=== PATIENT | female | born 2000 | race African-American/Black ===

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

== ENCOUNTER 2018-01-29 12:03 | Emergency (ER) | payer SELFPAY ==
[2018-01-29] MEDS ORDERED: Acetaminophen 325 MG TAB ONE (13:32)
[2018-01-29 14:12] LABS: Pregnancy Test - Urine (BHCG) Negative (Negative); Pregu Control Background? CLEAR/WHITE (CLR/WHITE); Pregu Control Bar Appear? YES (CONTROL BAR)
[2018-01-29] MEDS ORDERED: Dexamethasone 10 MG/ML VIAL ONE (14:16)
[2018-01-29] MEDS ORDERED: Ondansetron ODT 4 MG TAB ONE (14:23)
== END 2018-01-29 14:28 | disposition home or self-care (01) ==
LOC: ERS 12:03
DX: J02.9 Acute pharyngitis, unspecified (principal)
CPT/HCPCS: 81025; 87070; 87077; 87081; 87186; 87430; 99283; J1100; Q0162

== ENCOUNTER 2018-04-14 06:46 | Emergency (ER) | payer SELFPAY ==
[2018-04-14] MEDS ORDERED: Ketorolac Tromethamine 30 MG/ML VIAL ONE (09:17)
== END 2018-04-14 09:46 | disposition home or self-care (01) ==
LOC: ERS 06:46
DX: N76.2 Acute vulvitis (principal); L73.8 Other specified follicular disorders
CPT/HCPCS: 96372; J1885

== ENCOUNTER 2018-05-12 10:42 | Emergency (ER) | payer SELFPAY ==
[2018-05-12 11:58] LABS: #Basophils 0.1 thou/uL (0.0-0.2); #Eosinphils 0.1 thou/uL (0.0-0.7); #Lymphocytes 1.8 thou/uL (1.20-3.40); #Monocytes 0.6 thou/uL (0.11-0.59); #Neutrophils 6.3 thou/uL (1.40-6.50); %Basophils 1.1 % (0.0-1.0); %Eosinophils 0.6 % (0.0-10.0); %Monocytes 7.1 % (0.0-4.0); %Neutrophils 71.2 % (31.0-61.0); Mean Corpuscular HGB CONC 32.3 g/dL (32.0-36.0); Mean Corpuscular Hemoglobin 27.2 pg (25.0-35.0); Mean Corpuscular Volume 84.3 fL (78.0-98.0); Mean Platelet Volume 8.4 fL (7.4-10.4); Platelet Count 254 thou/uL (130-400); RBC Distribution Width 13.5 % (11.5-14.5); Red Blood Cell (RBC) Count 4.43 mill/uL (4.00-5.20); White Blood Cell (WBC) Count 8.9 thou/uL (4.8-10.8)
[2018-05-12 12:25] LABS: ALT (SGPT) 9 U/L (8-55); AST (SGOT) 15 U/L (5-30); Albumin 4.2 g/dL (3.5-5.0); Alkaline Phosphatase 47 U/L (40-150); Anion Gap 11 mmol/L (10-20); BUN (Urea Nitrogen) 8 mg/dL (8.4-21.0); Bilirubin, Total 0.3 mg/dL (0.2-1.2); Calc. Creatinine Clearance 0 mL/min (70-130); Calcium 9.6 mg/dL (7.8-10.44); Carbon Dioxide 24 mmol/L (22-29); Chloride 103 mmol/L (98-107); Estimated GFR-MDRD Greater than 90; Globulin 3.6 g/dL (2.4-3.5); Glucose 95 mg/dL (70-105); Lipase 13 U/L (8-78); Potassium 4.1 mmol/L (3.5-5.1); Protein, Total 7.8 g/dL (6.0-8.3); Sodium 134 mmol/L (136-145)
[2018-05-12 12:59] LABS: Bilirubin Negative (Negative); Blood, Urine Negative (Negative); Clarity CLEAR (Clear); Glucose, Urine (Dipstick) Negative (Negative); Leukocyte Small (Negative); Nitrite Negative (Negative); Protein, Urine (Dipstick) Negative (Neg-Trace); Specific Gravity, Urine 1.023 (1.002-1.036)
[2018-05-12 13:01] LABS: Bacteria/HPF Rare-Few HPF (None Seen); Hyaline Casts/LPF 0-3 HYALINE CAST LPF (0-3 Hyaline); Pathc Cast-AUWi Flag 0.14 (0-2.49); RBC/HPF 0-3 HPF (0-3)
[2018-05-12 13:33] LABS: Pregnancy Test - Urine (BHCG) POSITIVE (Negative); Pregu Control Background? CLEAR/WHITE (CLR/WHITE); Pregu Control Bar Appear? YES (CONTROL BAR); Specific Gravity 1.023 (1.002-1.036)
== END 2018-05-12 14:18 | disposition home or self-care (01) ==
LOC: ERS 10:42
DX: Z33.1 Pregnant state, incidental (principal); R11.2 Nausea with vomiting, unspecified; R10.30 Lower abdominal pain, unspecified
CPT/HCPCS: 36415; 80053; 81003; 81015; 81025; 83690; 85025; 99284

== ENCOUNTER 2018-05-25 10:08 | Emergency (ER) | payer SELFPAY ==
[2018-05-25 10:41] LABS: Bilirubin Negative (Negative); Blood, Urine Negative (Negative); Clarity CLOUDY (Clear); Glucose, Urine (Dipstick) Negative (Negative); Leukocyte Moderate (Negative); Nitrite Negative (Negative); Protein, Urine (Dipstick) 30 mg/dL (Neg-Trace); pH, Urine 6.5 (5.0-9.0)
[2018-05-25 10:44] LABS: Bacteria/HPF 1+ HPF (None Seen); Pathc Cast-AUWi Flag 4.79 (0-2.49); RBC/HPF 0-3 HPF (0-3)
[2018-05-25 10:45] LABS: Hyaline Casts/LPF 0-3 HYALINE CAST LPF (0-3 Hyaline); Manual Microscopic Reviewed? No Path Casts Seen
[2018-05-25 10:51] LABS: #Basophils 0.1 thou/uL (0.0-0.2); #Eosinphils 0.1 thou/uL (0.0-0.7); #Lymphocytes 2.2 thou/uL (1.20-3.40); #Monocytes 0.8 thou/uL (0.11-0.59); #Neutrophils 7.5 thou/uL (1.40-6.50); %Basophils 1.2 % (0.0-1.0); %Eosinophils 0.6 % (0.0-10.0); %Lymphocytes 20.2 % (28.0-48.0); %Monocytes 7.7 % (0.0-4.0); %Neutrophils 70.2 % (31.0-61.0); Hemoglobin 12.8 g/dL (12.0-16.0); Mean Corpuscular HGB CONC 31.9 g/dL (32.0-36.0); Mean Corpuscular Hemoglobin 26.8 pg (25.0-35.0); Mean Corpuscular Volume 84.1 fL (78.0-98.0); Mean Platelet Volume 8.9 fL (7.4-10.4); Platelet Count 270 thou/uL (130-400); RBC Distribution Width 13.2 % (11.5-14.5); Red Blood Cell (RBC) Count 4.79 mill/uL (4.00-5.20); White Blood Cell (WBC) Count 10.7 thou/uL (4.8-10.8)
[2018-05-25 11:13] LABS: ALT (SGPT) 31 U/L (8-55); AST (SGOT) 29 U/L (5-30); Albumin 4.2 g/dL (3.5-5.0); Alkaline Phosphatase 48 U/L (40-150); Anion Gap 11 mmol/L (10-20); BUN (Urea Nitrogen) 9 mg/dL (8.4-21.0); Bilirubin, Total 0.3 mg/dL (0.2-1.2); Calc. Creatinine Clearance 0 mL/min (70-130); Calcium 9.6 mg/dL (7.8-10.44); Carbon Dioxide 22 mmol/L (22-29); Chloride 103 mmol/L (98-107); Estimated GFR-MDRD Greater than 90; Globulin 3.7 g/dL (2.4-3.5); Glucose 89 mg/dL (70-105); Lipase 15 U/L (8-78); Potassium 3.7 mmol/L (3.5-5.1); Protein, Total 7.9 g/dL (6.0-8.3); Sodium 132 mmol/L (136-145)
--- NOTE | 2018-05-25 12:07 | ULT ---
ULTRASOUND PELVIC WITH DOPPLER: Date: 05/25/18 HISTORY: Evaluate for an ectopic . Abdominal pain. Pelvic pain. COMPARISON: None. FINDINGS: There is a single, viable intrauterine . A pole, yolk sac, and gestational sac are see n. The heart rate is documented at 180 beats/minute. There is a small anterior body fibroid. Adequate vascular flow to both ovaries. Right ovary measures 2.7 x 1.8 x 1.3 cm. Left ovary measure 2.3 x 1.2 x 1.9 cm. No subchorionic hemorrhage. The average ultrasound age is 9 weeks/2 days. Estimated date of delivery is 12/26/18. IMPRESSION: Single, viable intrauterine , with average ultrasound age of 9 weeks and 2 days. Estimated d ate of delivery is 12/26/18. POS: [facility]
== END 2018-05-25 12:30 | disposition home or self-care (01) ==
LOC: ERS 10:08
DX: N39.0 Urinary tract infection, site not specified (principal)
CPT/HCPCS: 76856; 80053; 81003; 81015; 83690; 84702; 85025; 87086; 87480; 87510; 87660; 93976

== ENCOUNTER 2018-06-20 14:18 | Emergency (ER) | payer SELFPAY ==
[2018-06-20 15:01] LABS: #Basophils 0.1 thou/uL (0.0-0.2); #Lymphocytes 2.2 thou/uL (1.20-3.40); #Monocytes 0.7 thou/uL (0.11-0.59); #Neutrophils 7.8 thou/uL (1.40-6.50); %Basophils 0.7 % (0.0-1.0); %Eosinophils 0.4 % (0.0-10.0); %Lymphocytes 20.1 % (28.0-48.0); %Monocytes 6.5 % (0.0-4.0); %Neutrophils 72.4 % (31.0-61.0); Hemoglobin 13.3 g/dL (12.0-16.0); Mean Corpuscular HGB CONC 33.3 g/dL (32.0-36.0); Mean Corpuscular Hemoglobin 27.3 pg (25.0-35.0); Mean Platelet Volume 8.8 fL (7.4-10.4); Platelet Count 253 thou/uL (130-400); RBC Distribution Width 13.5 % (11.5-14.5); Red Blood Cell (RBC) Count 4.86 mill/uL (4.00-5.20); White Blood Cell (WBC) Count 10.7 thou/uL (4.8-10.8)
[2018-06-20 15:30] LABS: ALT (SGPT) 13 U/L (8-55); AST (SGOT) 18 U/L (5-30); Albumin 4.3 g/dL (3.5-5.0); Alkaline Phosphatase 47 U/L (40-150); Anion Gap 16 mmol/L (10-20); BUN (Urea Nitrogen) 10 mg/dL (8.4-21.0); Bilirubin, Total 0.4 mg/dL (0.2-1.2); Calc. Creatinine Clearance 0 mL/min (70-130); Calcium 9.9 mg/dL (7.8-10.44); Carbon Dioxide 17 mmol/L (22-29); Chloride 105 mmol/L (98-107); Estimated GFR-MDRD Greater than 90; Glucose 82 mg/dL (70-105); Lipase 14 U/L (8-78); Magnesium 1.9 mg/dL (1.7-2.2); Potassium 3.7 mmol/L (3.5-5.1); Protein, Total 8.3 g/dL (6.0-8.3); Sodium 134 mmol/L (136-145)
[2018-06-20 16:12] LABS: Bilirubin Small (Negative); Blood, Urine Negative (Negative); Clarity TURBID (Clear); Glucose, Urine (Dipstick) Negative (Negative); Leukocyte Large (Negative); Nitrite Negative (Negative); Protein, Urine (Dipstick) 30 mg/dL (Neg-Trace); Specific Gravity, Urine 1.032 (1.002-1.036)
[2018-06-20 16:13] LABS: Pregnancy Test - Urine (BHCG) POSITIVE (Negative); Pregu Control Background? CLEAR/WHITE (CLR/WHITE); Pregu Control Bar Appear? YES (CONTROL BAR); Specific Gravity 1.032 (1.002-1.036)
[2018-06-20] MEDS ORDERED: Mag-Al 1200 mg/1200 mg/30 ML UDCUP ONE (16:14)
[2018-06-20] MEDS ORDERED: Lidocaine Viscous Sol 2% 15 ml UD Cup ONE (16:14)
[2018-06-20 16:15] LABS: Bacteria/HPF 2+ HPF (None Seen); Squamous Epithelial 21-50 HPF (0-3)
[2018-06-20 16:16] LABS: Pathc Cast-AUWi Flag 4.36 (0-2.49)
[2018-06-20 16:23] LABS: Hyaline Casts/LPF 0-3 HYALINE CAST LPF (0-3 Hyaline); Other Casts/LPF None Seen LPF (0-3 Hyaline); RBC/HPF 0-3 HPF (0-3)
[2018-06-20] MEDS ORDERED: Ondansetron PF 4 MG/2 ML Vial ONE ×2 (16:26→16:27)
[2018-06-20] MEDS ORDERED: cefTRIAXone\\ROCEPHIN 1 GM VIAL ONE (16:57)
== END 2018-06-20 17:40 | disposition home or self-care (01) ==
LOC: ERS 14:18
DX: O21.9 Vomiting of pregnancy, unspecified (principal); O23.42 Unspecified infection of urinary tract in pregnancy, second trimester; F41.9 Anxiety disorder, unspecified; F32.9 Major depressive disorder, single episode, unspecified; Z3A.14 14 weeks gestation of pregnancy
CPT/HCPCS: 36415; 80053; 81003; 81015; 81025; 83690; 83735; 85025; 87086; 96361; 96365; 96375; J0696; J2405

== ENCOUNTER 2018-07-10 11:18 | Emergency (ER) | payer MEDICAID, SELFPAY ==
[2018-07-10] MEDS ORDERED: diphenhydrAMINE 50 MG/ML VIAL ONE (11:52)
[2018-07-10] MEDS ORDERED: Metoclopramide HCl 10 MG/2 ML VIAL ONE (11:52)
== END 2018-07-10 13:08 | disposition home or self-care (01) ==
LOC: ERS 11:18
DX: J02.9 Acute pharyngitis, unspecified (principal); R11.2 Nausea with vomiting, unspecified; F32.9 Major depressive disorder, single episode, unspecified; F41.9 Anxiety disorder, unspecified
CPT/HCPCS: 87081; 87430; 96365; 96375; J1200; J2765

== ENCOUNTER 2018-08-10 10:48 | Emergency (ER) | payer MEDICAID, OTHER ==
[2018-08-10] MEDS ORDERED: Bupivacaine 0.5% 10 ML VIAL ONE (12:12)
== END 2018-08-10 13:00 | disposition home or self-care (01) ==
LOC: ERS 10:48
DX: O99.711 Diseases of the skin and subcutaneous tissue complicating pregnancy, first trimester (principal); L02.214 Cutaneous abscess of groin; O99.341 Other mental disorders complicating pregnancy, first trimester; F41.9 Anxiety disorder, unspecified; F32.9 Major depressive disorder, single episode, unspecified; Z3A.00 Weeks of gestation of pregnancy not specified
CPT/HCPCS: 10060; J3490

== ENCOUNTER 2018-08-30 19:06 | Day surgery (SDC) | payer OTHER ==
[2018-08-30 19:55] VITALS: BMI 25.7
[2018-08-30] MEDS ORDERED: Morphine 10 MG/ML VIAL IM SCH (20:45)
--- NOTE | 2018-08-30 20:52 | PRG ---
DATE OF SERVICE: 08/30/2018 PRIMARY ADVERTISING INTERN: Dr. Bae. CHIEF COMPLAINT: Sharp abdominal pains. HISTORY OF PRESENT ILLNESS: The patient is a 17-year-old G1, P0 with an intrauterine at 23 weeks and 2 days, who is presenting with a several day history of sharp lower abdominal pains. She feels worse with standing, walking, and getting out of bed. 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 The patient reports loose stools at night for the last few weeks. Denies diarrhea. Denies constipation. Denies fever, headache, chest pain, shortness of breath, nausea, vomiting, hip problems, knee problems, muscle weakness, rash, vaginal bleeding or leakage of fluid or urinary urgency or frequency. PAST MEDICAL HISTORY: Negative. PAST SURGICAL HISTORY: She has had tonsillectomy. SOCIAL HISTORY: Denies drug, alcohol, or tobacco use. ALLERGIES: NO KNOWN DRUG ALLERGIES. MEDICATION: vitamins. OB LABS: Unavailable. REVIEW OF SYSTEMS: Per HPI. PHYSICAL EXAMINATION: VITAL SIGNS: Blood pressure 110/60, heart rate of 93, respiratory rate of 20, and temperature 98.4. GENERAL: She appears to be in no acute distress. She is alert, oriented, cooperative, and pleasant to interact with. HEAD: Normocephalic and atraumatic. LUNGS: Clear to auscultation bilaterally. HEART: Regular rate and rhythm. ABDOMEN: Soft. She does have tenderness with deviation of the uterus to the left and right, primarily on the left-hand side, lower abdomen, and inguinal region. EXTREMITIES: Nontender and nonedematous. : Has been deferred. She has no CVA tenderness. No paravertebral tenderness. No vertebral tenderness. She does have some SI joint tenderness primarily on the left. heart tracing shows a baseline in the 150s with moderate long-term variability and appropriate for a 23-week gestation. ASSESSMENT AND PLAN: The patient is a 17-year-old with musculoskeletal pain of . She has been given reassurance, there is no evidence of labor. The patient has been counseled to take 2 Tylenol 3 times a day for the next few days and will be going home with 6 mg of morphine IM to help acutely. The patient has an appointment with Dr. Bae in a couple of weeks. We have encouraged that she make an appointment for sooner if she is having trouble managing her pain at home with Tylenol. Fetus is reassuring for gestational age. The patient is being discharged home. Job ID: [id number]
== END 2018-08-30 20:50 | disposition home or self-care (01) ==
LOC: L&D/OP 19:06
PROVIDERS: ATTEND Obstetrics & Gynecology
DX: O26.892 Other specified pregnancy related conditions, second trimester (principal); R10.30 Lower abdominal pain, unspecified; Z79.899 Other long term (current) drug therapy; Z3A.23 23 weeks gestation of pregnancy
CPT/HCPCS: 96372; 99282; J2270

== ENCOUNTER 2018-09-01 01:21 | Day surgery (SDC) | payer OTHER ==
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
--- NOTE | 2018-09-01 02:04 | PDOC.EVN ---
Event Note - Event Note Event Note: I have interviewed the patient myself, with Rowan in the room (RN). I asked the partner to step out for the interview. Patient denies abuse or drug use. I asked if the partner does any illicit substances as his eyes were glassy...she said no. She was aked about abuse and she denied. She feels safe at home. We will watch overnight. I discussed RH check with her.
[2018-09-01 02:21] VITALS: BP 112/58; TEMP 98.2; BMI 25.7
--- NOTE | 2018-09-01 05:50 | PDOC.EVN ---
Event Note - Event Note Event Note: Doing well Stable for [facility] RH pos
== END 2018-09-01 06:12 | disposition home health service (06) ==
LOC: L&D/OP 01:21
PROVIDERS: ATTEND Obstetrics & Gynecology
DX: O99.89 Other specified diseases and conditions complicating pregnancy, childbirth and the puerperium (principal); R42 Dizziness and giddiness; Z3A.23 23 weeks gestation of pregnancy; W19.XXXA Unspecified fall, initial encounter
CPT/HCPCS: 36415; 86900; 86901; 99283

== ENCOUNTER 2018-09-07 01:16 | Emergency (ER) | payer OTHER ==
[2018-09-07 01:38] LABS: Bilirubin Negative (Negative); Blood, Urine Negative (Negative); Glucose, Urine (Dipstick) Negative (Negative); Leukocyte Small (Negative); Nitrite Negative (Negative); Protein, Urine (Dipstick) Negative (Neg-Trace); Specific Gravity, Urine 1.025 (1.005-1.030); Urobilinogen 0.2 mg/dL (0.2-1.0); pH, Urine 7.5 (5.0-9.0)
[2018-09-07 01:39] LABS: Squamous Epithelial 21-50 HPF (0-3)
[2018-09-07 01:40] LABS: Clarity Cloudy (Clear); Pathc Cast-AUWi Flag 68.76 (0-2.49); Yeast-AUWi Flag 2206.8 (0-25.0)
[2018-09-07 01:50] LABS: Bacteria/HPF Rare-Few HPF (None Seen); Hyaline Casts/LPF NONE SEEN LPF (0-3 Hyaline); RBC/HPF 0-3 HPF (0-3); Renal Epithelial None Seen HPF (0-3); Transitional Epithelial NONE SEEN HPF (0-3); Yeast-All Forms None Seen HPF (None Seen)
[2018-09-07 01:51] LABS: Crystals/HPF 1+ AMORPH PHOS HPF (Negative); Manual Microscopic Reviewed? No Path Casts Seen
[2018-09-07 22:48] LABS: Chlamydia by PCR Not Detected (NotDetected); GC by PCR Not Detected (NotDetected)
== END 2018-09-07 02:11 | disposition home or self-care (01) ==
LOC: ERS 01:16
DX: B37.3 Candidiasis of vulva and vagina (principal); N39.0 Urinary tract infection, site not specified
CPT/HCPCS: 81003; 81015; 87480; 87491; 87510; 87591; 87660; 99283

== ENCOUNTER 2018-12-15 23:22 | Day surgery (SDC) | payer OTHER ==
[2018-12-15 23:53] VITALS: BP 118/64; TEMP 98.7; BMI 29.7
--- NOTE | 2018-12-16 00:26 | PDOC.LDHP ---
Labor and Delivery H&P Allergies/Adverse Reactions: Allergies Allergy/AdvReac Type Severity Reaction Status Date / Time No Known Allergies Allergy Verified 12/15/18 23:47 - Plan -: PCP: Catalino HPI: This is a 18 yo at 38.5 wks by LMP/1TUS presenting for nausea which has been going on for 5-6 days. She states she feels like she needs to vomit but cannot vomit. She has been taking Zofran from Dr. Manuel office but this has not been helping. She has been tolerating PO intake, tonight for supper she ate BBQ wings, Vincentian fries, and macaroni and cheese from [employer] and more. States she is a poor water drinker. She denies fevers, chills, or sweats. She denies burning or blood with urination. She was treated for yeast infection 2 weeks ago and states she has not had vaginal burning/itching since that time. Patient states she has lower abdominal pain on both sides described as sharp which is worse with movement and resolves at rest. Pain is 0/10 at this moment but comes on occasionally and lasts for a few minutes. She has not tried anytying at home to help with this pain. Thinks she gets 1-2 contractions per day. She affirms movement, denies ROM, denies bleeding/discharge. Denies FARRIS, visual changes, SOB, or swelling. History: OB hx: G1 PMH: neg PSH: neg Meds: PNV Soc Hx: denies smoking, alcohol, drugs Fam Hx: denies downs, congenital defects Blood type: A+ Abs screen neg Hep b neg RPR/HIV neg Rubella immune PAP NILM GC/CT neg GBS: neg REVIEW OF SYSTEMS: Gen: no fever, chills, or sweats Neuro: no numbness/tingling, no weakness, denies headache Eyes: no visual changes ENT: no hearing changes, no sore throat, no runny nose Resp: no cough, no SOB, no wheeze Card: denies chest pain, no palpitations GI: see hpi : no dysuria, no hematuria MSK: no myalgias, no joint pain/stiffness Heme: no easy bruising/bleeding Skin: no rash, no erythema PHYSICAL EXAMINATION: General: NAD, alert and oriented x3 HEENT: PERRLA, EOMI, normal sclera, oropharynx without erythema or exudate Neck: Supple. Full ROM. Heart/Cardiovascular System: RRR, Cap refill < 3 seconds, no rub, no murmur Lungs/Respiratory System: clear to auscultation bilaterally. No increased work of breathing. Room air. Abdomen/Gastro-Intestinal System: no abdominal tenderness, normal bowel sounds, Gravid Extremities: Warm extremities. No cyanosis or edema. Neuro: No gross deficits appreciated. CN 2-12 grossly intact Psychiatry: Awake, Alert and cooperative with exam Skin: No lesions, rashes, or ulcers Musculoskeletal: Full ROM A/P: This is a 18 yo at 38.5 wks by LMP/1TUS presenting for nausea # Round ligament pain - Tylenol, rest, reassurance - Follow up in clinic this week # Indigestion - Tolerating PO liquids and solids, drank 2 cups of water while in triage Discussed labor precautions at length, f/u with Catalino this week in clinic Addendum - Attending - Attending Attestation Date/Time: 12/18/18 0623 I personally evaluated the patient and discussed the management with Dr. Hansen I agree with the History, Examination, Assessment and Plan documented above with any addition or exceptions noted below. Vital signs and fht also reviewed by myself. 112/66 84 R18 98.7. FHT baseline 130s with mod ltv , +accels, no decels. [place] with frequent irregular ctx. Pt in latent labor. dicharged home with precautions
[2018-12-16] MEDS ORDERED: Acetaminophen 325 MG TAB PO SCH (00:30)
== END 2018-12-16 01:30 | disposition home or self-care (01) ==
LOC: L&D/OP 23:22
PROVIDERS: ATTEND Obstetrics & Gynecology
DX: O99.613 Diseases of the digestive system complicating pregnancy, third trimester (principal); K30 Functional dyspepsia; O99.89 Other specified diseases and conditions complicating pregnancy, childbirth and the puerperium; R10.2 Pelvic and perineal pain; R11.0 Nausea; Z3A.38 38 weeks gestation of pregnancy
CPT/HCPCS: 99283

== ENCOUNTER 2018-12-22 23:58 | Emergency (ER) | payer OTHER | END 2018-12-23 01:15 | disposition home or self-care (01) | LOC: ERS 23:58 | DX: O9A.213 Injury, poisoning and certain other consequences of external causes complicating pregnancy, third trimester (principal); S80.862A Insect bite (nonvenomous), left lower leg, initial encounter; S80.861A Insect bite (nonvenomous), right lower leg, initial encounter; W57.XXXA Bitten or stung by nonvenomous insect and other nonvenomous arthropods, initial encounter | CPT/HCPCS: 99281 ==

== ENCOUNTER 2018-12-25 00:57 | Day surgery (SDC) | payer OTHER ==
[2018-12-25 01:40] VITALS: BMI 28.8
--- NOTE | 2018-12-25 02:30 | PDOC.LDHP ---
Labor and Delivery H&P HPI: Patient of Dr Bae CC: CTX HPI: 18 yo G1 at 40 weeks 0 days with irregular CTX. No VB, no LOF, good FM. No FARRIS, no LOC, no other issues. Review of systems: Complete ROS performed and as per HPI Current gestational age (weeks): 40 Dating criteria: last menstrual period Grav: 1 Para: 0 Current complications: none Abnormal US findings: No Current medications: pre-marcus vitamins Previous surgical history: other (T&A) Allergies/Adverse Reactions: Allergies Allergy/AdvReac Type Severity Reaction Status Date / Time No Known Allergies Allergy Verified 12/25/18 01:41 - Physical Exam Vital signs reviewed and normal: yes (126/80) General: NAD Heart: RRR Lungs: CTAB Abdomen: gravid Extremeties: no edema FHT: category 1 [place] contractions every: every 2-4 - Vaginal Exam cm dilated: 1 Effacement: 50% Station: -1 - Assessment Latent labor at full term - Plan Plan: observation in L&D (Obs for 2 hours)
--- NOTE | 2018-12-25 04:36 | PDOC.EVN ---
Event Note - Event Note Event Note: Follow up: I have reassessed the patient at bedside. BPs are normal. She is having some persistent CTX but stil irregular. No LOF, no VB. CX is still 1cm as before. NST is reactive, no decels She has an appoitment for induction of labor this coming Tuesday if no spont delivery. OK for discharge and return to L&D if sxs persists or labor progresses. Information provided to the patient and family.
== END 2018-12-25 04:38 | disposition home or self-care (01) ==
LOC: L&D/OP 00:57
PROVIDERS: ATTEND Obstetrics & Gynecology
DX: O47.1 False labor at or after 37 completed weeks of gestation (principal); Z3A.40 40 weeks gestation of pregnancy; Z79.899 Other long term (current) drug therapy
CPT/HCPCS: 99282

== ENCOUNTER 2018-12-25 16:51 | Inpatient (IN) | payer OTHER ==
[2018-12-25 17:38] VITALS: BMI 28.8
[2018-12-25] MEDS ORDERED: Butorphanol Tartrate 1 MG/ML VIAL SLOW IVP PRN (17:46)
[2018-12-25] MEDS ORDERED: Lactated Ringer's 1,000 ML IV SCH (17:46)
[2018-12-25] MEDS ORDERED: Ondansetron PF 4 MG/2 ML Vial IVP PRN ×2 (17:46→19:11)
[2018-12-25] MEDS ORDERED: HYDROcodone/Acetaminophen 5/325 mg Tablet PO PRN ×2 (17:46)
[2018-12-25] MEDS ORDERED: NS / Oxytocin 40 units/1000ml 1,000 ML IV PRN (17:46)
[2018-12-25] MEDS ORDERED: NS w/ Oxytocin 10 units 500 ML IV SCH (17:46)
[2018-12-25] MEDS ORDERED: Lidocaine 1% (PF) 30 ML VIAL SC PRN (17:46)
[2018-12-25] MEDS ORDERED: Promethazine HCl 25 MG/ML VIAL IM PRN ×2 (17:46→19:11)
[2018-12-25] MEDS ORDERED: Ibuprofen 800 MG TAB PO PRN (17:46)
[2018-12-25] MEDS ORDERED: Fentanyl 4 mcg/Bup 0.1% Cadd 100 ML ONE (17:54)
[2018-12-25 18:13] LABS: Hemoglobin 12.6 g/dL (12.0-16.0); Mean Corpuscular HGB CONC 33.2 g/dL (32.0-36.0); Mean Corpuscular Hemoglobin 29.2 pg (25.0-35.0); Mean Corpuscular Volume 88.1 fL (78.0-98.0); Mean Platelet Volume 9.6 fL (7.4-10.4); Platelet Count 194 thou/uL (130-400); RBC Distribution Width 13.4 % (11.5-14.5); Red Blood Cell (RBC) Count 4.31 mill/uL (4.00-5.20); White Blood Cell (WBC) Count 24.7 thou/uL (4.8-10.8)
[2018-12-25] MEDS ORDERED: diphenhydrAMINE 50 MG/ML VIAL ONE (18:25)
[2018-12-25 18:48] LABS: HBSAg Index 0.32 S/CO (0-0.99); Hep B Surf Ag Non-Reactive S/CO (NonReactive)
[2018-12-25 18:49] LABS: Syphilis Antibody Nonreactive (Nonreactive); Syphilis Antibody Index 0.06 S/CO (<1.00 Non-Reactive)
[2018-12-25] MEDS: Lactated Ringer's 1,000 ML IV SCH ×2 (18:54→23:21)
[2018-12-25] MEDS ORDERED: Acetaminophen 325 MG TAB PO PRN (19:11)
[2018-12-25] MEDS ORDERED: ePHEDrine/0.9% NaCl/PF SYRINGE 50 mg/10 ml SLOW IVP PRN (19:11)
[2018-12-25] MEDS ORDERED: Lactated Ringer's 500 ML IV PRN (19:11)
[2018-12-25] MEDS ORDERED: diphenhydrAMINE 50 MG/ML VIAL IVP PRN (19:11)
[2018-12-25] MEDS ORDERED: Naloxone HCl 0.4 mg/ml Vial IVP PRN ×2 (19:11)
[2018-12-25] MEDS ORDERED: Fentanyl 4 mcg/Bupivacaine 0.1% Cassette 100 ML EPIDURAL SCH (19:15)
[2018-12-25] MEDS ORDERED: Communication Order-Pharmacy FS SCH (19:15)
[2018-12-26] MEDS ORDERED: Fentanyl 4 mcg/Bup 0.1% Cadd 100 ML ONE (01:59)
--- NOTE | 2018-12-26 04:00 | PDOC.OPDEL ---
OB Operative/Delivery Note Delivery Dr/Surgeon: Kev for [facility] Pre-Delivery Diagnosis: active labor Procedure/Post Delivery Dx: spontaneous vaginal delivery Weeks gestation: 40 Anesthesia: epidural - Findings A Sex: male Weight: 0 oz - 1 min: 8 - 5 min: 9 - Additional Findings/Plan Placenta delivered: spontaneous Repaired Obstetrical Laceration: left labial (2 deg repair with 2/0 chromic, jasso in situ) Estimated blood loss: 582 Compilations/Other Findings: controlled without complication. routine repair. will leave jasso in for 14 hr due to proximity to urethra meatus Post delivery plan: routine recovery
[2018-12-26] MEDS ORDERED: Promethazine HCl 25 MG/ML VIAL IM PRN (05:14)
[2018-12-26] MEDS ORDERED: Ondansetron PF 4 MG/2 ML Vial IVP PRN (05:14)
[2018-12-26] MEDS ORDERED: Milk Of Magnesia 30 ML UDCUP PO PRN (05:14)
[2018-12-26] MEDS ORDERED: diphenhydrAMINE 25 MG CAP PO PRN (05:14)
[2018-12-26] MEDS ORDERED: Zolpidem Tartrate 5 MG TAB PO PRN (05:14)
[2018-12-26] MEDS ORDERED: Lanolin Ointment 7 GM TUBE TOP PRN (05:14)
[2018-12-26] MEDS ORDERED: Benzocaine-Menthol 82.5 ML CAN TOP PRN (05:14)
[2018-12-26] MEDS ORDERED: Preparation H Ointment 28 GM TUBE PR PRN (05:14)
[2018-12-26] MEDS ORDERED: NS / Oxytocin 40 units/1000ml 1,000 ML IV SCH (05:14)
[2018-12-26] MEDS ORDERED: HYDROcodone/Acetaminophen 5/325 mg Tablet PO PRN (05:14)
[2018-12-26] MEDS ORDERED: Bisacodyl 10 MG SUPP PR PRN (05:14)
[2018-12-26] MEDS: Ibuprofen 800 MG TAB PO SCH ×3 (06:24→22:19)
[2018-12-26] MEDS ORDERED: Adacel (T-DAP) 0.5 ML SYRINGE IM ONE (09:00)
[2018-12-26] MEDS: Ferrous Sulfate 325 MG TAB PO SCH ×2 (09:53→16:49)
[2018-12-26] MEDS: Prenatal Vitamin 1 TAB PO SCH (09:54)
[2018-12-26] MEDS: Docusate Calcium (SURFAK) 240 MG CAP PO SCH ×2 (09:54→22:19)
[2018-12-26] MEDS ORDERED: Sodium Chloride 0.9% 15 ML NEB ONE (18:00)
[2018-12-26] MEDS: HYDROcodone/Acetaminophen 5/325 mg Tablet PO PRN (18:40)
--- NOTE | 2018-12-27 00:08 | PDOC.PP ---
Post Progress Note Post Day #: PPD#1 Subjective: Resting no c/o. Ramirez was removed at 6pm, has voided x 1. PO intake tolerated: yes Flatus: yes Ambulation: yes Vital Signs (12 hours) Temp Pulse Resp BP Pulse Ox 12/26/18 19:45 98.2 F 84 18 118/69 99 12/26/18 17:21 98.8 F 90 20 113/56 L 12/26/18 12:21 98.6 F 92 20 92/51 L Weight Weight 78.471 kg - Physical Examination General: NAD Respiratory: non-labored breathing Neurological: no gross focal deficits Psychiatric: normal affect Result Diagrams: 12/25/18 18:01 Additional Labs: Post Labs Blood Type A POSITIVE 12/25/18 18:01 Hep Bs Antigen Non-Reactive S/CO (NonReactive) 12/25/18 18:01 - Assessment/Plan Doing well. Routine PP care. Anticipate DC 12/28/18.
[2018-12-27] MEDS: Ibuprofen 800 MG TAB PO SCH ×2 (05:33→14:30)
[2018-12-27] MEDS: HYDROcodone/Acetaminophen 5/325 mg Tablet PO PRN ×2 (06:39→15:05)
[2018-12-27 08:07] VITALS: TEMP 98.4
[2018-12-27] MEDS: Docusate Calcium (SURFAK) 240 MG CAP PO SCH (09:11)
[2018-12-27] MEDS: Prenatal Vitamin 1 TAB PO SCH (09:11)
[2018-12-27] MEDS: Ferrous Sulfate 325 MG TAB PO SCH (09:12)
[2018-12-27 11:58] VITALS: BP 114/54
== END 2018-12-27 17:15 | disposition home or self-care (01) | DRG 807 ==
LOC: L&D/OP 16:51 → L&D 17:32 → 3SW 12-26 07:37
PROVIDERS: ADMIT Obstetrics & Gynecology; ATTEND Obstetrics & Gynecology
PROC: 10E0XZZ Delivery of Products of Conception, External Approach (ICD-10-PCS; principal; 2018-12-26)
PROC: 0UQMXZZ Repair Vulva, External Approach (ICD-10-PCS; 2018-12-26)
DX: O48.0 Post-term pregnancy (principal); Z37.0 Single live birth; Z3A.40 40 weeks gestation of pregnancy; O70.0 First degree perineal laceration during delivery
CPT/HCPCS: 36415; 51702; 85027; 86780; 86850; 86900; 86901; 87340; 99285; A4218; J1200; J2405; J2590

== ENCOUNTER 2019-01-05 16:50 | Emergency (ER) | payer OTHER ==
[2019-01-05 17:32] LABS: #Basophils 0.1 thou/uL (0.0-0.2); #Eosinphils 0.1 thou/uL (0.0-0.7); #Lymphocytes 2.3 thou/uL (1.20-3.40); #Monocytes 0.8 thou/uL (0.11-0.59); #Neutrophils 10.1 thou/uL (1.40-6.50); %Basophils 0.4 % (0.0-1.0); %Lymphocytes 17.1 % (28.0-48.0); %Neutrophils 75.5 % (31.0-61.0); Hemoglobin 11.7 g/dL (12.0-16.0); Mean Corpuscular HGB CONC 33.1 g/dL (32.0-36.0); Mean Corpuscular Hemoglobin 29.2 pg (25.0-35.0); Mean Corpuscular Volume 88.3 fL (78.0-98.0); Mean Platelet Volume 8.2 fL (7.4-10.4); Platelet Count 321 thou/uL (130-400); RBC Distribution Width 12.9 % (11.5-14.5); White Blood Cell (WBC) Count 13.4 thou/uL (4.8-10.8)
[2019-01-05 17:57] LABS: ALT (SGPT) 13 U/L (8-55); AST (SGOT) 15 U/L (5-34); Acetaminophen Less than 6.0 mcg/mL (10.0-30.0); Albumin 3.7 g/dL (3.5-5.0); Alcohol Less than 10 mg/dL (Less than 10); Alkaline Phosphatase 179 U/L (40-150); Anion Gap 14 mmol/L (10-20); BUN (Urea Nitrogen) 18 mg/dL (7.0-18.7); Bilirubin, Total 0.2 mg/dL (0.2-1.2); Calc. Creatinine Clearance 0 mL/min (70-130); Calcium 9.2 mg/dL (7.8-10.44); Carbon Dioxide 21 mmol/L (22-29); Chloride 107 mmol/L (98-107); Estimated GFR-MDRD Greater than 90; Globulin 3.3 g/dL (2.4-3.5); Glucose 78 mg/dL (70-105); Potassium 4.4 mmol/L (3.5-5.1); Salicylate Less than 8.0 mg/dL (15.0-30.0); Sodium 138 mmol/L (136-145)
[2019-01-05 18:20] LABS: Amphetamine Not Detected (NotDetected); Barbiturates Screen Not Detected (NotDetected); Benzodiazepine Screen Not Detected (NotDetected); Cocaine Metabolite Screen Not Detected (NotDetected); Medtox Reader # READER 1; Methadone Not Detected (NotDetected); Methamphetamine Not Detected (NotDetected); Opiate Screen Not Detected (NotDetected); Oxycodone Screen Not Detected (NotDetected); Phencyclidine (PCP) Not Detected (NotDetected); THC/Cannabinoid Screen Not Detected (NotDetected); Tricyclic Screen Not Detected (NotDetected)
[2019-01-05 18:21] LABS: Medtox Control Line Valid? VALID (VALID)
[2019-01-05 19:59] LABS: Bilirubin Negative (Negative); Blood, Urine Large (Negative); Clarity CLOUDY (Clear); Glucose, Urine (Dipstick) Negative (Negative); Leukocyte Large (Negative); Nitrite Negative (Negative); Protein, Urine (Dipstick) 30 mg/dL (Neg-Trace); Specific Gravity, Urine 1.026 (1.002-1.036)
[2019-01-05 20:00] LABS: Pregnancy Test - Urine (BHCG) Negative (Negative); Pregu Control Background? CLEAR/WHITE (CLR/WHITE); Pregu Control Bar Appear? YES (CONTROL BAR); Specific Gravity 1.026 (1.002-1.036)
[2019-01-05 20:01] LABS: Pathc Cast-AUWi Flag 2.04 (0-2.49); Squamous Epithelial 0-3 HPF (0-3); Yeast-AUWi Flag 284.1 (0-25.0)
[2019-01-05 20:06] LABS: Bacteria/HPF 1+ HPF (None Seen); Hyaline Casts/LPF NONE SEEN LPF (0-3 Hyaline); Yeast-All Forms None Seen HPF (None Seen)
== END 2019-01-05 23:47 ==
LOC: ERS 16:50
DX: O99.345 Other mental disorders complicating the puerperium (principal); F53.0 Postpartum depression; F41.9 Anxiety disorder, unspecified
CPT/HCPCS: 36415; 80053; 80306; 80307; 81003; 81015; 81025; 84443; 85025; 99285

== ENCOUNTER 2019-03-20 17:54 | Emergency (ER) | payer OTHER, SELFPAY ==
[2019-03-20] MEDS ORDERED: Lidocaine 1% PF 5 ML VIAL ONE (18:44)
[2019-03-20] MEDS ORDERED: Acetaminophen/Codeine 30-300mg Tablet ONE (18:47)
== END 2019-03-20 20:45 | disposition home or self-care (01) ==
LOC: ERS 17:54
DX: L02.415 Cutaneous abscess of right lower limb (principal); F31.9 Bipolar disorder, unspecified; F41.9 Anxiety disorder, unspecified
CPT/HCPCS: 10060; J2001

== ENCOUNTER 2019-08-21 00:59 | Emergency (ER) | payer SELFPAY ==
[2019-08-21] MEDS ORDERED: Ondansetron ODT 8 MG TAB ONE (01:17)
[2019-08-21] MEDS ORDERED: Promethazine HCl 25 MG/ML VIAL ONE (02:09)
== END 2019-08-21 02:30 | disposition home or self-care (01) ==
LOC: ERS 00:59
DX: R11.2 Nausea with vomiting, unspecified (principal); R19.7 Diarrhea, unspecified; F41.9 Anxiety disorder, unspecified; F31.9 Bipolar disorder, unspecified
CPT/HCPCS: 96372; 99284; J2550

== ENCOUNTER 2019-09-24 04:33 | Emergency (ER) | payer SELFPAY ==
[2019-09-24] MEDS ORDERED: Ondansetron ODT 4 MG TAB ONE ×2 (05:50→06:14)
[2019-09-24] MEDS ORDERED: Ondansetron PF 4 MG/2 ML Vial ONE (06:40)
[2019-09-24 07:13] LABS: BHCG - Serum Negative (NEGATIVE); Pregs Control Background? CLEAR/WHITE (CLR/WHITE); Pregs Control Bar Appear? YES (CONTROL BAR)
[2019-09-24 07:14] LABS: Hemoglobin 12.5 g/dL (12.0-16.0); Mean Corpuscular HGB CONC 32.1 g/dL (32.0-36.0); Mean Corpuscular Hemoglobin 24.9 pg (25.0-35.0); Mean Corpuscular Volume 77.6 fL (78.0-98.0); Mean Platelet Volume 9.1 fL (7.4-10.4); Platelet Count 280 thou/uL (130-400); RBC Distribution Width 14.8 % (11.5-14.5); Red Blood Cell (RBC) Count 5.01 mill/uL (4.00-5.20); White Blood Cell (WBC) Count 22.8 thou/uL (4.8-10.8)
[2019-09-24 07:31] LABS: Band 2 % (5-11); Lymphocytes 8 % (28-48); MDiff Complete? YES; Microcytosis SLIGHT = 6-15 cells (100X) (0-5/hpf); Monocytes 5 % (0-4); Neutrophil 83 % (31-61); Platelet Morphology Comment Appears Adequate
[2019-09-24 07:43] LABS: ALT (SGPT) 32 U/L (8-55); AST (SGOT) 52 U/L (5-34); Albumin 4.6 g/dL (3.5-5.0); Alkaline Phosphatase 92 U/L (40-100); Anion Gap 14 mmol/L (10-20); BUN (Urea Nitrogen) 12 mg/dL (7.0-18.7); Bilirubin, Total 0.3 mg/dL (0.2-1.2); Calc. Creatinine Clearance 0 mL/min (70-130); Calcium 9.8 mg/dL (7.8-10.44); Carbon Dioxide 25 mmol/L (22-29); Chloride 103 mmol/L (98-107); Estimated GFR-MDRD Greater than 90; Globulin 4.2 g/dL (2.4-3.5); Glucose 133 mg/dL (70-105); Lipase 20 U/L (8-78); Potassium 4.4 mmol/L (3.5-5.1); Protein, Total 8.8 g/dL (6.0-8.3); Sodium 138 mmol/L (136-145)
== END 2019-09-24 09:54 | disposition home or self-care (01) ==
LOC: ERS 04:33
DX: R10.13 Epigastric pain (principal); R11.2 Nausea with vomiting, unspecified; F41.9 Anxiety disorder, unspecified; F31.9 Bipolar disorder, unspecified
CPT/HCPCS: 80053; 83690; 84703; 85025; 96361; 96374; J2405; Q0162

== ENCOUNTER 2020-01-15 10:46 | Emergency (ER) | payer OTHER ==
[2020-01-15 11:34] LABS: #Basophils 0.1 thou/uL (0.0-0.2); #Eosinphils 0.1 thou/uL (0.0-0.7); #Lymphocytes 2.2 thou/uL (1.20-3.40); #Monocytes 0.8 thou/uL (0.11-0.59); #Neutrophils 9.2 thou/uL (1.40-6.50); %Basophils 0.9 % (0.0-1.0); %Eosinophils 0.6 % (0.0-10.0); %Lymphocytes 17.5 % (21.0-51.0); %Monocytes 6.6 % (0.0-10.0); %Neutrophils 74.4 % (42.0-75.0); Hemoglobin 11.5 g/dL (12.0-16.0); Mean Corpuscular HGB CONC 31.6 g/dL (32.0-36.0); Mean Corpuscular Hemoglobin 24.7 pg (27.0-31.0); Mean Corpuscular Volume 78.2 fL (78.0-98.0); Mean Platelet Volume 8.6 fL (7.4-10.4); Platelet Count 310 thou/uL (130-400); RBC Distribution Width 15.1 % (11.5-14.5); Red Blood Cell (RBC) Count 4.67 mill/uL (4.20-5.40); White Blood Cell (WBC) Count 12.4 thou/uL (4.8-10.8)
[2020-01-15 11:50] LABS: Bacteria/HPF 2+ HPF (None Seen); Bilirubin Negative (Negative); Clarity Turbid (Clear); Glucose, Urine (Dipstick) Normal (Negative); Leukocyte 500 Leu/uL (Negative); Nitrite Negative (Negative); Protein, Urine (Dipstick) 30 mg/dL (Neg-Trace); WBC/HPF Greater than 50 HPF (0-3)
[2020-01-15 11:55] LABS: Blood, Urine 1+ (Negative)
[2020-01-15 11:56] LABS: Pregnancy Test - Urine (BHCG) POSITIVE (Negative); Pregu Control Background? CLEAR/WHITE (CLR/WHITE); Pregu Control Bar Appear? YES (CONTROL BAR); Specific Gravity 1.032 (1.002-1.036)
[2020-01-15 12:03] LABS: ALT (SGPT) 18 U/L (8-55); AST (SGOT) 17 U/L (5-34); Albumin 4.1 g/dL (3.5-5.0); Alkaline Phosphatase 71 U/L (40-110); Anion Gap 12 mmol/L (10-20); BUN (Urea Nitrogen) 10 mg/dL (7.0-18.7); Bilirubin, Total 0.2 mg/dL (0.2-1.2); Calc. Creatinine Clearance 0 mL/min (70-130); Calcium 8.9 mg/dL (7.8-10.44); Carbon Dioxide 24 mmol/L (22-29); Chloride 104 mmol/L (98-107); Estimated GFR-MDRD Greater than 90; Globulin 3.7 g/dL (2.4-3.5); Glucose 122 mg/dL (70-105); Potassium 3.8 mmol/L (3.5-5.1); Protein, Total 7.8 g/dL (6.0-8.3); Sodium 136 mmol/L (136-145)
[2020-01-15] MEDS ORDERED: cefTRIAXone\\ROCEPHIN 2 GM VIAL ONE (12:03)
--- NOTE | 2020-01-15 13:00 | ULT ---
Exam: Transabdominal and endovaginal pelvic ultrasound HISTORY: patient. Pelvic pain. COMPARISON: None TECHNIQUE: Transabdominal and endovaginal imaging of the pelvis is performed. Ovaries are interrogate d with grayscale, color flow, Doppler imaging and spectral wave form analysis FINDINGS: Uterus: No myometrial masses. Uterus measurin.3 x 5.8 x 8.4 cm. Endometrium: Within the endometrium, there is a gestational sac, yolk sac and pole. No subchori onic hemorrhage. [place]-rump length 0.38 cm corresponding to gestational age of 6 weeks 0 days. heart tones: 114 bpm . Free fluid: None Right ovary: Normal echotexture Right ovary measurement: 3.2 x 1.7 x 2.3 cm Left ovary: Normal echotexture. Left ovary measurements: 2.5 x 1.6 x 1.9 cm Ovarian Doppler: There is vascular flow to the left and right ovary. IMPRESSION: 1. Single intrauterine gestation with heart tones. Gestational age by crown-rump length is 6 we eks 0 days.
[2020-01-16 19:48] LABS: Chlamydia by PCR Not Detected (NotDetected); GC by PCR Not Detected (NotDetected)
== END 2020-01-15 14:21 | disposition home or self-care (01) ==
LOC: ERS 10:46
DX: O23.41 Unspecified infection of urinary tract in pregnancy, first trimester (principal); O99.341 Other mental disorders complicating pregnancy, first trimester; F41.9 Anxiety disorder, unspecified; F31.9 Bipolar disorder, unspecified; Z3A.01 Less than 8 weeks gestation of pregnancy
CPT/HCPCS: 36415; 76856; 80053; 81003; 81015; 81025; 84702; 85025; 86900; 86901; 87086; 87480; 87491; 87510; 87591; 87660; 96361; 96365; J0696

== ENCOUNTER 2020-01-24 13:14 | Observation (INO) | payer OTHER ==
[2020-01-24] MEDS ORDERED: Metoclopramide HCl 10 MG/2 ML VIAL ONE (13:42)
[2020-01-24 14:24] LABS: Hemoglobin 12.3 g/dL (12.0-16.0); Mean Corpuscular Hemoglobin 25.2 pg (27.0-31.0); Mean Corpuscular Volume 77.6 fL (78.0-98.0); Red Blood Cell (RBC) Count 4.87 mill/uL (4.20-5.40); White Blood Cell (WBC) Count 15.4 thou/uL (4.8-10.8)
[2020-01-24 14:25] LABS: #Lymphocytes 1.6 thou/uL (1.20-3.40); #Monocytes 0.9 thou/uL (0.11-0.59); #Neutrophils 12.9 thou/uL (1.40-6.50); %Basophils 0.1 % (0.0-1.0); %Eosinophils 0.2 % (0.0-10.0); %Lymphocytes 10.3 % (21.0-51.0); %Monocytes 5.5 % (0.0-10.0); %Neutrophils 83.8 % (42.0-75.0); Mean Corpuscular HGB CONC 32.5 g/dL (32.0-36.0); Mean Platelet Volume 9.1 fL (7.4-10.4); Platelet Count 302 thou/uL (130-400); RBC Distribution Width 15.2 % (11.5-14.5)
[2020-01-24 14:48] LABS: ALT (SGPT) 101 U/L (8-55); AST (SGOT) 74 U/L (5-34); Albumin 4.3 g/dL (3.5-5.0); Alkaline Phosphatase 89 U/L (40-110); Anion Gap 17 mmol/L (10-20); BUN (Urea Nitrogen) 9 mg/dL (7.0-18.7); Bilirubin, Total 0.5 mg/dL (0.2-1.2); Calc. Creatinine Clearance 0 mL/min (70-130); Calcium 9.4 mg/dL (7.8-10.44); Carbon Dioxide 18 mmol/L (22-29); Chloride 104 mmol/L (98-107); Estimated GFR-MDRD Greater than 90; Globulin 4.2 g/dL (2.4-3.5); Glucose 85 mg/dL (70-105); Potassium 3.8 mmol/L (3.5-5.1); Protein, Total 8.5 g/dL (6.0-8.3); Sodium 135 mmol/L (136-145)
[2020-01-24 15:07] LABS: Bilirubin Negative (Negative); Blood, Urine Negative (Negative); Clarity Turbid (Clear); Glucose, Urine (Dipstick) Normal (Negative); Ketone, Urine 150 mg/dL (Negative); Leukocyte 500 Leu/uL (Negative); Nitrite Negative (Negative); Protein, Urine (Dipstick) 50 mg/dL (Neg-Trace); RBC/HPF Greater than 50 HPF (0-3); Specific Gravity, Urine 1.028 (1.002-1.036); Squamous Epithelial Greater than 50 HPF (0-3); Urobilinogen 6 mg/dL (Less than 2); WBC/HPF Greater than 50 HPF (0-3)
[2020-01-24 15:13] LABS: Bacteria/HPF 1+ HPF (None Seen)
[2020-01-24 15:14] LABS: Trichomonas/HPF 3+ HPF (None Seen)
[2020-01-24] MEDS ORDERED: Acetaminophen 500 MG TAB ONE (15:16)
--- NOTE | 2020-01-24 15:49 | ULT ---
Obstetric sonogram first trimester HISTORY: Early . Pain. FINDINGS: transabdominal and transvaginal imaging. Urinary bladder is decompressed. Gestational sac w ithin the endometrial cavity again demonstrated with a pole and yolk sac. Heart motion at 157 bpm. Very thin sliver of subchorionic fluid posterior to the gestational sac. Measurements correlate with 8 weeks 0 days gestational age giving an estimated date of delivery of . Each ovary has normal appearance with good color and spectral Doppler flow. IMPRESSION : Single viable intrauterine gestation. Estimated gestational age 8 weeks 0 days. Minimal subchorionic hemorrhage.
[2020-01-24] MEDS ORDERED: cefTRIAXone\\ROCEPHIN 1 GM VIAL ONE (17:23)
[2020-01-24] MEDS ORDERED: Ondansetron PF 4 MG/2 ML Vial IVP PRN (20:22)
[2020-01-24 20:48] VITALS: BMI 26.6
[2020-01-24] MEDS: Dextrose 5%-Lactated Ringers 1,000 ML IV SCH (20:49)
[2020-01-24] MEDS ORDERED: Doxylamine 25 MG TAB PO SCH (21:00)
--- NOTE | 2020-01-24 21:54 | HP ---
TIME OF SERVICE: 2105 hours. REASON FOR ADMISSION: Hyperemesis gravidarum at 8 weeks' gestation, complicated with urinary tract infection. HISTORY OF PRESENT ILLNESS: The patient is a 19-year-old 2, para 1, at 8 weeks by ultrasound today with 3 weeks of nausea and vomiting. She states it has gotten progressively worse and cannot hold food down, although she is asking for regular diet. She did not clear ketones with 2 L in the emergency room. A decision was made to admit the patient. 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 Bae in the past. , no antepartum care of this . Ultrasound consistent with 8 weeks 0 day. The patient has a history of blood type A positive, antibody negative. PAST MEDICAL HISTORY: None. PAST SURGICAL HISTORY: None. ALLERGIES: DENIES. MEDICATIONS: None. SOCIAL HISTORY: Denies tobacco, alcohol, or IV drug use. FAMILY HISTORY: Noncontributory. REVIEW OF SYSTEMS: Noncontributory. PHYSICAL EXAMINATION: GENERAL: White female, resting comfortably in room with significant other. VITAL SIGNS: Temperature 98.9, pulse 80, respirations 20, blood pressure 121/57. HEENT: Within normal limits. LUNGS: Clear to auscultation bilaterally. HEART: Regular rhythm. ABDOMEN: Soft and nontender without rebound or guarding. PELVIC: Vulvar lesions. Vaginal exam in the ER was without discharge. EXTREMITIES: No clubbing, cyanosis, or edema. No CVA tenderness is noted. DIAGNOSTIC STUDIES: Ultrasound revealed an 8-week IUP. LABORATORY DATA: The patient had persistent elevated beta hydroxybutyrate. Urinalysis revealed Trichomonas. Urine bacteria, greater than 50 wbc's and rbc's, 500+ leukocyte esterase, and 150 ketones. Beta-hCG is 87,000. Electrolytes are within normal limits except for elevated AST and ALT. White count was 15.4, 83% neutrophils, hematocrit of 37%, normal platelet count. IMPRESSION: Hyperemesis gravidarum with urinary tract infection, elevated WBCs, dehydration, mildly elevated LFTs. PLAN: 1. COVID-19 testing. 2. Urine culture. 3. IV fluids. 4. Reglan, Zofran, pyridoxine, vitamin B6, and doxylamine. 5. Rocephin 1 g IV q.12 h. 6. Clear liquid diet. 7. Recheck comprehensive metabolic panel and urinalysis in the a.m. 8. Anticipate 24- to 48-hour hospitalization. Suspect that LFTs are elevated secondary to dehydration and nausea and vomiting. The patient will need treatment for Trichomonas with Flagyl at approximately 14 to 16 weeks' gestation. Job ID: [id number]
[2020-01-24] MEDS: Metoclopramide HCl 10 MG/2 ML VIAL IVP SCH (21:56)
[2020-01-24] MEDS: pyridOXINE 50 MG (B6) TAB PO SCH (21:57)
[2020-01-24] MEDS: Famotidine/PF 20 mg/2ml Vial SLOW IVP SCH (21:57)
[2020-01-25] MEDS: Dextrose 5%-Lactated Ringers 1,000 ML IV SCH ×2 (02:51→12:25)
[2020-01-25 03:10] LABS: Bacteria/HPF None Seen HPF (None Seen); Bilirubin Negative (Negative); Blood, Urine Negative (Negative); Clarity Turbid (Clear); Glucose, Urine (Dipstick) Normal (Negative); Ketone, Urine Trace mg/dL (Negative); Leukocyte 500 Leu/uL (Negative); Mucous/LPF Rare LPF (<2+); Nitrite Negative (Negative); Protein, Urine (Dipstick) Negative (Neg-Trace); Specific Gravity, Urine 1.015 (1.002-1.036); Squamous Epithelial 21-50 HPF (0-3); WBC/HPF Greater than 50 HPF (0-3)
[2020-01-25] MEDS ORDERED: Sodium Chloride 0.9% 10 ML ONE (05:00)
[2020-01-25] MEDS: Metoclopramide HCl 10 MG/2 ML VIAL IVP SCH (05:57)
[2020-01-25] MEDS ORDERED: Sodium Chloride 0.9% 500 ML IV SCH (06:00)
[2020-01-25] MEDS ORDERED: cefTRIAXone\\ROCEPHIN 1 GM in Sodium Chloride 0.9% 100 ML IVPB SCH (06:00)
[2020-01-25 06:48] LABS: ALT (SGPT) 63 U/L (8-55); AST (SGOT) 35 U/L (5-34); Albumin 3.2 g/dL (3.5-5.0); Alkaline Phosphatase 63 U/L (40-110); Anion Gap 9 mmol/L (10-20); BUN (Urea Nitrogen) 4 mg/dL (7.0-18.7); Bilirubin, Total 0.4 mg/dL (0.2-1.2); Calc. Creatinine Clearance 173 mL/min (70-130); Calcium 8.2 mg/dL (7.8-10.44); Carbon Dioxide 22 mmol/L (22-29); Chloride 107 mmol/L (98-107); Estimated GFR-MDRD Greater than 90; Glucose 96 mg/dL (70-105); Potassium 3.4 mmol/L (3.5-5.1); Protein, Total 6.2 g/dL (6.0-8.3); Sodium 135 mmol/L (136-145)
--- NOTE | 2020-01-25 07:52 | PRG ---
DATE OF SERVICE: 01/25/2020 TIME OF SERVICE: 0725 hours. SUBJECTIVE: Ms. Hutchison is resting comfortably. She states her nausea significantly improved. She is hungry and desires a regular diet. OBJECTIVE: VITAL SIGNS: Stable. T-max 98.9, pulse 80, and blood pressure 120/57. LUNGS: Clear to auscultation bilaterally. HEART: Regular rate and rhythm. ABDOMEN: Soft and nontender. No rebound or guarding. No CVA tenderness. EXTREMITIES: No clubbing, cyanosis, or edema. LABORATORY: Repeat LFTs are down from 74 and 101 to 35 and 63 consistent with acute increase associated with nausea and vomiting. The patient's urinalysis has gone from 150, ketones to trace. It persist with 500 plus leukocyte esterase and greater than 50 wbc's. Urine cultures pending. COVID-19 is pending. IMPRESSION: 1. An 8 weeks' gestation. 2. Hyperemesis gravidarum, improving. 3. Complicated urinary tract infection, under treatment with Rocephin 1 g IV q.12 hours. 4. COVID-19 pending. PLAN: 1. Advance diet. 2. Continue current therapy. 3. Follow up COVID-19 results. 4. Possible p.m. discharge on outpatient oral antibiotics versus a.m. on 01/25 discharge if nausea and vomiting remains improved. The patient will be checked out to Dr. Theresa Francisco, OB hospitalist taking over 0800 hours on 01/24. Job ID: [id number]
[2020-01-25] MEDS: Famotidine/PF 20 mg/2ml Vial SLOW IVP SCH (07:55)
[2020-01-25] MEDS: pyridOXINE 50 MG (B6) TAB PO SCH (07:55)
[2020-01-25 08:12] VITALS: BP 115/55; TEMP 99.3
[2020-01-25 12:56] LABS: SARS-CoV-2 MS2 Positive; SARS-CoV-2 N Gene Negative; SARS-CoV-2 S Gene Negative; SARS-CoV-2 orf1ab Negative
--- NOTE | 2020-01-25 15:40 | DIS ---
DATE OF ADMISSION: 01/24/2020 DATE OF DISCHARGE: 01/25/2020 DIAGNOSES: 1. Hyperemesis gravidarum. 2. Urinary tract infection. 3. Trichomoniasis. 4. An 8-week intrauterine . 5. Elevated LFTs. HOSPITAL COURSE: The patient presented with 3-week history of nausea and vomiting and was noted to be dehydrated in the emergency room. She was admitted for IV hydration. She has not had any care this thus far. Her admission labs included mildly elevated LFTs, mildly elevated white blood cell count, and urinary tract infection. Trichomonas was also noted on her UA. She had COVID testing, which was negative. She received IV fluids as well as Reglan, Zofran, pyridoxine and doxylamine and Rocephin 1 g IV q.12 hours. On hospital day 1, she was feeling much better and able to tolerate a regular diet. Her LFTs were trending downward and she was ready for discharge. DISCHARGE MEDICATIONS: 1. Reglan 10 mg p.o.q AC and at bedtime. 2. Zofran 4 mg ODT one tab sublingual q.6 hours p.r.n. nausea and vomiting. 3. Bonjesta one tab at bedtime. 4. Keflex 500 mg p.o. b.i.d. x7 days. DIET: As tolerated. ACTIVITY: As tolerated. INSTRUCTIONS: Establish care as soon as possible. She will need antibiotic treatment for her Trichomonas at 14 to 16 weeks with Flagyl. The patient was instructed on this and will notify the provider she chooses for her care. She was instructed on eating small meals and focusing on hydration. She may return if unable to tolerate p.o. for over 24 hours or other concerns. Job ID: [id number] [facility]
== END 2020-01-25 14:40 | disposition home health service (06) ==
LOC: ERS 13:14 → 3SW 17:24 → INTOOBSV 17:24 → 3SW 01-25 01:58
PROVIDERS: ADMIT Obstetrics & Gynecology; ATTEND Obstetrics & Gynecology
DX: O21.0 Mild hyperemesis gravidarum (principal); O23.41 Unspecified infection of urinary tract in pregnancy, first trimester; O98.311 Other infections with a predominantly sexual mode of transmission complicating pregnancy, first trimester; A59.00 Urogenital trichomoniasis, unspecified; O99.89 Other specified diseases and conditions complicating pregnancy, childbirth and the puerperium; R79.89 Other specified abnormal findings of blood chemistry; O99.281 Endocrine, nutritional and metabolic diseases complicating pregnancy, first trimester; E86.0 Dehydration; Z20.828 Contact with and (suspected) exposure to other viral communicable diseases; Z3A.08 8 weeks gestation of pregnancy
CPT/HCPCS: 36415; 76856; 80053; 81001; 81003; 81015; 82010; 84702; 85025; 87086; 87635; 96361; 96365; 96367; 96375; 96376; G0378; J0696; J2765; J3490; S0028; U0003

== ENCOUNTER 2020-04-29 11:18 | Emergency (ER) | payer OTHER ==
[2020-04-29 12:29] LABS: #Basophils 0.1 thou/uL (0.0-0.2); #Lymphocytes 1.8 thou/uL (1.20-3.40); #Monocytes 0.7 thou/uL (0.11-0.59); #Neutrophils 15.3 thou/uL (1.40-6.50); %Basophils 0.4 % (0.0-1.0); %Eosinophils 0.2 % (0.0-10.0); %Lymphocytes 9.8 % (21.0-51.0); %Monocytes 3.7 % (0.0-10.0); %Neutrophils 85.9 % (42.0-75.0); Hemoglobin 12.4 g/dL (12.0-16.0); Mean Corpuscular HGB CONC 32.1 g/dL (32.0-36.0); Mean Corpuscular Hemoglobin 26.4 pg (27.0-31.0); Mean Corpuscular Volume 82.1 fL (78.0-98.0); Platelet Count 290 thou/uL (130-400); RBC Distribution Width 16.1 % (11.5-14.5); Red Blood Cell (RBC) Count 4.69 mill/uL (4.20-5.40); White Blood Cell (WBC) Count 17.8 thou/uL (4.8-10.8)
--- NOTE | 2020-04-29 13:27 | ULT ---
EXAM: OB ultrasound COMPARISON: 02/22/2020 HISTORY: Vaginal bleeding with history of placenta previa. Right lower quadrant abdominal pain TECHNIQUE: Multiplanar grayscale and color Doppler images were obtained in a transabdominal ult rasound. FINDINGS: There is a single live intrauterine with heart rate of 140 bpm. Estimated w eight is 384 g. Average age of the fetus based off today's examination is 20 weeks 6 days. BPD 4.81 cm -- 20 weeks 4 days HC 18.68 cm -- 21 weeks 0 days AC 15.66 cm -- 20 weeks 6 days FL 3.48 cm -- 20 weeks 0 days The placenta is anterior in location without focal abnormality. RON is 11.1 cm which is normal. The cervix is normal in length. There is no evidence of placenta previa. IMPRESSION: Single live intrauterine with estimated age of 20 weeks 6 days.
[2020-04-29 15:04] LABS: Bacteria/HPF None Seen HPF (None Seen); Bilirubin Negative (Negative); Blood, Urine Negative (Negative); Clarity Clear (Clear); Glucose, Urine (Dipstick) Normal (Negative); Ketone, Urine Greater than 150 mg/dL (Negative); Leukocyte 75 Leu/uL (Negative); Nitrite Negative (Negative); Protein, Urine (Dipstick) 20 mg/dL (Neg-Trace); RBC/HPF 0-3 HPF (0-3); Specific Gravity, Urine 1.028 (1.002-1.036); Urobilinogen Normal mg/dL (Less than 2); WBC/HPF 0-3 HPF (0-3)
[2020-05-01 20:00] LABS: Chlamydia by PCR Not Detected (NotDetected); GC by PCR Not Detected (NotDetected)
== END 2020-04-29 15:41 | disposition home or self-care (01) ==
LOC: ERS 11:18
DX: O20.9 Hemorrhage in early pregnancy, unspecified (principal); O99.341 Other mental disorders complicating pregnancy, first trimester; F41.9 Anxiety disorder, unspecified; F31.9 Bipolar disorder, unspecified; Z79.899 Other long term (current) drug therapy; Z3A.21 21 weeks gestation of pregnancy
CPT/HCPCS: 36415; 76815; 81003; 81015; 84702; 85025; 86900; 86901; 87077; 87086; 87480; 87491; 87510; 87591; 87660

== ENCOUNTER 2020-05-07 17:52 | Day surgery (SDC) | payer OTHER ==
[2020-05-07 18:48] VITALS: BMI 31.8
[2020-05-07] MEDS ORDERED: FLU VACC QS2020-21(6MOS UP)/PF 60 MCG/0.5 ML SYRINGE IM ONE (19:00)
--- NOTE | 2020-05-07 19:04 | PDOC.FPROB ---
FMR OB H&P: HPI - History of Present Illness Chief Complaint: Abdominal pain History of Present Illness: Patient is a 19 year old at 22.4 wks who presents to triage with complains of upper abdominal pain described as tightness. Patient says the pain began 2 days ago, is constant, rated current 8/10 in pain but remarks that it is not painful enough to require pain medication. Denies radiation. Says "everything" worsens her pain, in particular movement and palpation. She denies worsening of pain with food. She has tried Tylenol and heating pads without improvement. She reports sternal chest pain but denies headache, vision changes, SOB, nausea, vomiting, diarrhea and edema. She has a history of gallstones but says the pain feels different. + FM. Denies contractions, LOF or vaginal bleeding. Primary Care Physician: GRAY FMR OB H&P: Current - Care : 2 Para: 1001 Gestational age: 22.4wks Due date: 09/06/20 Course/Complications: Anemia of - OB Labs Blood type: unknown RH: unknown Antibody Screen: unknown HIV: unknown RPR: unknown HepBsAg: unknown Quad screen: unknown Gonorrhea: unknown Chlamydia: unknown GBS: unknown FMR OB H&P: History - Past Medical History PMH: Hx cholelithiasis - OB History OB History: . previously without tears. Anemia of . - Surgical History Sx History: None - Social History Social History: Denies tobacco use, ETOH use and drug use. - Family History Family History: Noncontributory FMR OB H&P: Medications - Current Home Medications: Medication Instructions Recorded Confirmed Type Cephalexin [Keflex] 500 mg PO Q12H #14 cap 01/25/20 Rx Doxylamine [Unisom] 25 mg PO HS tab 01/25/20 Rx Metoclopramide HCl [Reglan] 5 mg IVP Q8HR vial 01/25/20 Rx Ondansetron HCl/PF [Zofran] 4 mg IVP Q6H PRN vial 01/25/20 Rx pyridOXINE [Vitamin B 6] 50 mg PO TID tab 01/25/20 Rx Allergies/Adverse Reactions: Allergies Allergy/AdvReac Type Severity Reaction Status Date / Time No Known Allergies Allergy Verified 05/07/20 18:48 FMR OB H&P: ROS - Review of Systems General: denies: fever/chills, fatigue Eyes: denies: vision changes, double vision ENT: denies: nasal congestion, rhinorrhea Cardiovascular: reports: chest pain (sternal). denies: edema Respiratory: denies: cough, congestion, shortness of breath Gastrointestinal: reports: abdominal pain (upper). denies: cramping, nausea, vomiting, diarrhea, constipation, bright red blood, dark black tarry stools Genitourinary (Female): denies: dysuria, hematuria, vaginal pain, contractions, vaginal pressure Musculoskeletal: reports: pain, tenderness Neurologic: denies: numbness, weakness Hematologic/Lymphatic: denies: prolonged or excessive bleeding Psychological: denies: depression, anxiety FMR OB H&P: Physical Exam - Physical Exam General: NAD, awake, alert and oriented HEENT: normocephalic and atraumatic, MMM, conjunctiva clear Neck: supple, trachea midline Chest: non-tender to palpation Heart: RRR, normal S1/S2, pulses present, no edema General: CTAB, no respiratory distress, good air movement Abdomen: soft, gravid, bowel sound present, no masses Deviation from normal: Tenderness to RUQ and epigastric region Musculoskeletal: normal gait and station, FROM in all four extremities Deviation from normal: Pain elicited with movement, particuarly when performing a crunch Deviation from normal: Cranial nerves grossly intact Skin: no rash, no jaundice Lymphatic: no unusual bruising or bleeding Psychiatric: normal mood and affect FMR OB H&P: A/P Disposition: #galarza IUP at 22.4 wks here for abdominal and chest pain likely musculoskeletal in nature. -Administered pepcid -CMP, lipase WNL -RUQ US showed chronic cholelithiasis without cholecystitis -Patient instructed to take Tylenol 650mg Q6H as needed for pain. #Anemia of -On iron supplementation -Stable on CBC #Hx of cholelithiasis -Present on RUQ US -Cholecystitis precautions given -Patient counselled on low carb, low fat diet to prevent exacerbation of pain Dispo: Home. Patient will follow up as previously instructed with [facility]. Discussion: Date/Time: 05/07/201903 This H&P was discussed with [Dereje] who agree with the above documentation and plan. Addendum - Attending - Attending Attestation Date/Time: 05/08/20 3594 I personally evaluated the patient and discussed the management with Dr. Hong I agree with the History, Examination, Assessment and Plan documented above with any addition or exceptions noted below. On physical exam and by history symptoms most consistent with muscular pains. Rectus muscles tender to palpation reproducing chief complaint. Pain not associated with food, eating, nausea or vomiting. She does have a history of cholelithiasis and has presented in months past with nausea/vomiting abdominal pain for which she was dx with gallstones. labs wnl, us reconfirms stones but no wall thickening. I have reviewed with the patient diet recommendations to decrease gallstone pain. Pt given reassurance and discharged home. f/u with [facility] as scheduled.
[2020-05-07] MEDS ORDERED: hydrALAZINE 20 MG/ML VIAL SLOW IVP PRN (19:14)
[2020-05-07] MEDS ORDERED: Famotidine 20 MG TAB PO SCH (19:30)
[2020-05-07 19:49] LABS: #Basophils 0.1 thou/uL (0.0-0.2); #Eosinphils 0.1 thou/uL (0.0-0.7); #Lymphocytes 2.4 thou/uL (1.20-3.40); #Monocytes 0.7 thou/uL (0.11-0.59); #Neutrophils 9.8 thou/uL (1.40-6.50); %Basophils 0.9 % (0.0-1.0); %Eosinophils 0.5 % (0.0-10.0); %Lymphocytes 18.4 % (21.0-51.0); %Monocytes 5.6 % (0.0-10.0); %Neutrophils 74.6 % (42.0-75.0); Hemoglobin 11.3 g/dL (12.0-16.0); Mean Corpuscular HGB CONC 32.8 g/dL (32.0-36.0); Mean Corpuscular Hemoglobin 26.7 pg (27.0-31.0); Mean Corpuscular Volume 81.5 fL (78.0-98.0); Mean Platelet Volume 9.3 fL (7.4-10.4); Platelet Count 272 thou/uL (130-400); RBC Distribution Width 15.9 % (11.5-14.5); Red Blood Cell (RBC) Count 4.22 mill/uL (4.20-5.40); White Blood Cell (WBC) Count 13.1 thou/uL (4.8-10.8)
--- NOTE | 2020-05-07 20:05 | ULT ---
RIGHT UPPER QUADRANT ULTRASOUND CLINICAL HISTORY: History of right upper quadrant abdominal pain and 22 weeks . COMPARISON: Prior right upper quadrant ultrasound dated January 25, 2019 FINDINGS: Liver:Normal echotexture without focal mass. Intrahepatic bile ducts: No intrahepatic or extrahepatic biliary dilation.; Common bile duct: 2.9 mm. Gallbladder: There are multiple stones within the gallbladder. No gallbladder wall thickening or jamie cholecystic fluid is evident. Mccann's sign:None Main portal vein:Patent with hepatopedal flow. Pancreas:Visualized pancreas appears normal. Right kidney: Right kidney measures 10.7 x 6.5 cm. No focal renal lesion or hydronephrosis. Additional findings: None. IMPRESSION: Cholelithiasis without definite sonographic evidence of acute cholecystitis.
[2020-05-07 20:06] LABS: ALT (SGPT) 7 U/L (8-55); AST (SGOT) 10 U/L (5-34); Albumin 3.5 g/dL (3.5-5.0); Alkaline Phosphatase 71 U/L (40-110); Anion Gap 11 mmol/L (10-20); BUN (Urea Nitrogen) 6 mg/dL (7.0-18.7); Bilirubin, Total Less than 0.2 mg/dL (0.2-1.2); Calc. Creatinine Clearance 210 mL/min (70-130); Calcium 8.9 mg/dL (7.8-10.44); Carbon Dioxide 23 mmol/L (22-29); Chloride 104 mmol/L (98-107); Estimated GFR-MDRD Greater than 90; Globulin 3.5 g/dL (2.4-3.5); Glucose 83 mg/dL (70-105); Lipase 13 U/L (8-78); Potassium 3.6 mmol/L (3.5-5.1); Sodium 134 mmol/L (136-145)
== END 2020-05-07 20:35 | disposition home health service (06) ==
LOC: L&D/OP 17:52
PROVIDERS: ATTEND Family Medicine
DX: O99.891 Other specified diseases and conditions complicating pregnancy (principal); R10.10 Upper abdominal pain, unspecified; R07.9 Chest pain, unspecified; O99.012 Anemia complicating pregnancy, second trimester; O99.612 Diseases of the digestive system complicating pregnancy, second trimester; K80.20 Calculus of gallbladder without cholecystitis without obstruction; Z3A.22 22 weeks gestation of pregnancy
CPT/HCPCS: 36415; 76705; 80053; 83690; 85025

== ENCOUNTER 2020-07-31 12:15 | Observation (INO) | payer OTHER ==
[2020-07-31 13:02] VITALS: BMI 31.9
--- NOTE | 2020-07-31 13:36 | PDOC.FPROB ---
FMR OB H&P: HPI - History of Present Illness Chief Complaint: abdominal pain, gallstones, decreased FM Indentification: 19 yo at 34.5 by LMP c/w 6.3 wk sono History of Present Illness: Patient presented to [facility] appt today complaining of worsening abdominal pain over the course of past 2 weeks. Has progressively gotten worse. Diagnosed w/ gallstones at 22 wga without cholecystitis. Anything she has eaten over the past week she has vomited up. Nauseous currently. Abdominal pain is severe over epigastric and RUQ area. It is sharp in nature. Yesterday she felt warm and took temp; it was 100.1 F so she took Tylenol. She denies temp higher than that. Yesterday she also noticed fetus was not moving as much. She tried eating and fetus gave 1-2 kicks but then not much the rest of the night nor today. Reports some janice-miles contractions. Denies vaginal bleeding, vaginal discharge, LOF. Primary Care Physician: HARDEEP Thibodeaux FMR OB H&P: Current - Care : 2 Para: 1001 Gestational age: 34.5 Due date: 09/06/2020 Dating Criteria: LMP c/w 6.3 wk sono Course/Complications: Cholelithiasis since 22 wga Iron deficiency anemia Trichomonas in 1T, completion of abx by patient & partner, DALIA negative Borderline growth 13 %ile Short interpregnancy interval Low lying placenta w/ subchorionic hemorrhage, resolved - OB Labs Blood type: A RH: positive Antibody Screen: negative HIV: negative RPR: negative HepBsAg: negative Rubella: immune Gonorrhea: negative Chlamydia: negative Pap Smear: NILM GBS: unknown H&H: 10.3/31.6 Platelets: 283 Additional labs: 2hr GTT: 81/146/103 Hep C neg FMR OB H&P: History - Past Medical History PMH: Denies - OB History OB History: 1 , 12/2018, 40 wks, no complications - 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 Trich in this . - Surgical History Sx History: Tonsillectomy - Social History Social History: Denies smoking, drinking, drugs. , lives w/ . - Family History Family History: Mother: gallstones requiring cholecystectomy at age 21 FMR OB H&P: Medications - Current Home Medications: Medication Instructions Recorded Confirmed Type Vits96/Iron Fum/Folic 1 tab PO DAILY 07/31/20 07/31/20 History [ Tablet] Allergies/Adverse Reactions: Allergies Allergy/AdvReac Type Severity Reaction Status Date / Time No Known Allergies Allergy Verified 05/07/20 18:48 FMR OB H&P: ROS - Review of Systems General: reports: fever/chills, weight/appetite/sleep changes Eyes: denies: vision changes ENT: denies: nasal congestion, rhinorrhea, sore throat Cardiovascular: denies: chest pain, edema Respiratory: reports: shortness of breath. denies: cough Gastrointestinal: reports: abdominal pain, nausea, vomiting. denies: diarrhea Genitourinary (Female): reports: contractions. denies: dysuria, vaginal discharge, vaginal bleeding Musculoskeletal: denies: pain, tenderness Neurologic: reports: headache. denies: numbness, weakness Integumentary: denies: itching, rash, lesions Hematologic/Lymphatic: denies: enlarged lymph nodes Psychological: denies: depression, anxiety FMR OB H&P: Vital Signs - Maternal Vital signs: Vital Signs - First Documented Temp Pulse Resp BP Pulse Ox 98.4 F 117 H 16 120/57 L 100 07/31/20 12:49 07/31/20 12:49 07/31/20 12:49 07/31/20 12:49 07/31/20 12:49 - Heart Tones Baseline: 150 (reactive) Variability: minimal Acceleration: present Deceleration: absent FMR OB H&P: Physical Exam - Physical Exam General: NAD, awake, alert and oriented HEENT: normocephalic and atraumatic, no scleral icterus, grossly normal vision, grossly normal hearing Neck: trachea midline Chest: non-tender to palpation Heart: normal S1/S2, no murmurs/rubs/gallops (tachycardic rate) General: CTAB, no respiratory distress Abdomen: soft, gravid Deviation from normal: marked tenderness in epigastric area and on deep palpation of RUQ Musculoskeletal: pulses present Neurological: no focal deficit Skin: no rash Lymphatic: no unusual bruising or bleeding Psychiatric: intact recent and remote memory, normal mood and affect FMR OB H&P: A/P Disposition: observe on L&D, treat w/ IVF and antiemetics and analgesics. Discussion: Date/Time: 07/31/20 1334 19 yo F at 34.5 wga here for: Worsening abdominal pain in setting of known cholelithiasis - nausea and vomiting, will give zofran - decreased PO tolerance, will start IVF of D5 1/2 NS - for pain, will try morphine IV keeping in mind it can contract sphincter of Oddi and may worsen abd pain - CMP, lipase ordered - RUQ sono ordered Decreased FM - BPP ordered - NST with 1 accel, 4-5 contractions over 20 min period Borderline growth - growth at 30.2 wga was 13th percentile - repeat Growth today This H&P was discussed with Dr. Reyez, who agrees with the above documentation and plan. Signature: Janna Delvalle MD PGY2 Addendum - Attending - Attending Attestation Date/Time: 07/31/20 9850 I personally evaluated the patient and discussed the management with Dr. Delvalle I agree with the History, Examination, Assessment and Plan documented above with any addition or exceptions noted below. 19yo female with a known dx of cholelithiasis with 2wk h/o epigastric pain. pt has not eaten much as it exacerbates the pain with accompanying nausea and vomiting. pt reports she has not been eating the diet recommended. Evaluation today shows no evidence of cholecystitis or enlarged bile duct. Given the level of pain and the anorexia, nausea and vomiting will admit the patient for pain control and po challenge.
[2020-07-31] MEDS ORDERED: hydrALAZINE 20 MG/ML VIAL SLOW IVP PRN ×2 (13:42→15:42)
[2020-07-31] MEDS ORDERED: Ondansetron PF 4 MG/2 ML Vial IVP SCH (13:45)
[2020-07-31] MEDS ORDERED: Morphine 4 MG/ML VIAL SLOW IVP SCH ×2 (13:45→17:15)
[2020-07-31] MEDS ORDERED: Dextrose 5 %-0.45 % NaCl 1,000 ML IV SCH (13:45)
[2020-07-31 14:52] LABS: ALT (SGPT) 20 U/L (8-55); AST (SGOT) 22 U/L (5-34); Albumin 3.6 g/dL (3.5-5.0); Alkaline Phosphatase 176 U/L (40-110); Anion Gap 15 mmol/L (10-20); BUN (Urea Nitrogen) 8 mg/dL (7.0-18.7); Bilirubin, Total 0.3 mg/dL (0.2-1.2); Calc. Creatinine Clearance 197 mL/min (70-130); Calcium 9.3 mg/dL (7.8-10.44); Carbon Dioxide 21 mmol/L (22-29); Chloride 104 mmol/L (98-107); Glucose 82 mg/dL (70-105); Lipase 13 U/L (8-78); Protein, Total 7.6 g/dL (6.0-8.3); Sodium 136 mmol/L (136-145)
--- NOTE | 2020-07-31 15:14 | ULT ---
Exam: Right upper quadrant ultrasound: HISTORY: Right upper quadrant abdominal pain in a patient with 34 week . Known cholelithiasis. COMPARISON: 05/07/2020 FINDINGS: Liver: Within normal limits Gallbladder: Multiple mobile shadowing echogenic foci are again seen within the gallbladder lumen com patible with multiple gallbladder calculi. No gallbladder wall thickening or pericholecystic fluid is seen. Common bile duct: The common duct is normal in caliber measuring 0.2 cm in diameter. Pancreas: Limited visualized portions of the pancreas demonstrate a normal sonographic appearance. Right kidney: Right kidney demonstrates a normal sonographic appearance. There is no evidence of hydr onephrosis. The right kidney measures 11.1 cm in length. IVC: The visualized IVC demonstrates a normal sonographic appearance. IMPRESSION: 1. Cholelithiasis. 2. Common duct normal in caliber. 3. No evidence of hydronephrosis involving the right kidney.
--- NOTE | 2020-07-31 15:22 | ULT ---
This examination is reported on limited OB ultrasound also obtained on this date. Please see that rep ort for further details.
--- NOTE | 2020-07-31 15:22 | ULT ---
EXAM: Limited OB ultrasound biophysical profile COMPARISON: 04/29/2020 HISTORY: female patient. Evaluate for growth. TECHNIQUE: Multiplanar grayscale and color Doppler transabdominal sonographic images are obtained. FINDINGS: There is a single intrauterine gestation in cephalic presentation. Cardiac Doppler demonstr ates heart tones with a heart rate of 137 beats per minute. The placenta is located anteriorly without evidence of placenta previa. There is a normal amount of amniotic fluid with an am niotic fluid index of 9.5 centimeters. Cervix is obscured by shadowing from head. biometry measurements: BPD 8.5 cm -- 34 weeks 2 days HC 30.3 cm -- 33 weeks 5 days AC 28.83 cm -- 32 weeks 6 days FL 6.17 cm -- 32 weeks The estimated gestational age by ultrasound is 33 weeks 2 days with an JOHNNY on09/16/2020. Gestational ag e by the last menstrual period is 34 weeks 1 day. The estimated weight by ultrasound is 2053 g (4 pounds, 8 ounces). This represents 12 percentil e for weight. There has been interval growth compared to prior exam. This examination was not performed for evaluation of the anatomical structures. However, provid ed images do not demonstrate evidence of a anomaly. A score of 2 was obtained each for tone, breathing, movements, and amniotic fluid v olume. IMPRESSION: 1. Single intrauterine gestation in cephalic presentation with heart tones documented. Estimat ed gestational age by ultrasound is 33 weeks 2 days with JOHNNY on 09/16/2020. 2. Estimated weight is 2053 g (4 pounds, 8 ounces). 3. Amniotic fluid index is 9.5 centimeters. 4. A total biophysical profile score of 8 out of 8 was obtained.
[2020-07-31] MEDS ORDERED: Butorphanol Tartrate 1 MG/ML VIAL SLOW IVP SCH (15:30)
--- NOTE | 2020-07-31 15:40 | PDOC.BPN ---
- Brief Progress Note Patient reassessed, still having abdominal pain and nausea. Dr. Dereje scales to give Stadol.
[2020-07-31] MEDS ORDERED: Promethazine HCl 25 MG/ML VIAL IM PRN (15:42)
[2020-07-31] MEDS ORDERED: Ondansetron PF 4 MG/2 ML Vial IVP PRN (15:42)
[2020-07-31] MEDS ORDERED: Acetaminophen 500 MG TAB PO PRN (15:42)
[2020-07-31] MEDS ORDERED: Butorphanol Tartrate 1 MG/ML VIAL SLOW IVP PRN (15:42)
[2020-07-31] MEDS ORDERED: Lactated Ringer's 1,000 ML IV SCH ×2 (15:45→17:00)
--- NOTE | 2020-07-31 15:56 | PDOC.BPN ---
- Brief Progress Note Due to patient's inability to tolerate PO, we will admit her for OBS and IV hydration until she can tolerate PO. Plan for fluids is: LR bolus 1L now, followed by LR at 250 mL/hr until 1L is finished, then resume D5 LR at 125 mL/hr for another bag. Pain control with stadol, zofran and phenergan. Regular diet given. Admit to women's service. NST to be done qSHIFT.
[2020-07-31] MEDS ORDERED: Promethazine 25 MG TAB PO PRN (16:00)
[2020-07-31] MEDS ORDERED: Lidocaine 2% Viscous Solution 10 ML, Aluminum & Magnesium Hydroxide 30 ML SSW SCH (17:30)
[2020-07-31] MEDS: Acetaminophen/Codeine 30-300mg Tablet PO PRN (17:54)
[2020-07-31] MEDS ORDERED: Dextrose 5%-Lactated Ringers 1,000 ML IV SCH (21:00)
[2020-07-31] MEDS ORDERED: Zolpidem Tartrate 5 MG TAB PO PRN (21:13)
[2020-07-31 21:56] LABS: SARS-CoV-2 PCR by NAA Not Detected (NotDetected)
[2020-08-01] MEDS: Acetaminophen/Codeine 30-300mg Tablet PO PRN ×3 (00:02→17:41)
--- NOTE | 2020-08-01 06:47 | PDOC.OBAPN ---
FMR OB AP PN: Sub - Interval History Hospital Day: 2 Chief Complaint: abdominal pain Indentification: 19 yo at 34.6 wga Interval History: emesis of GI cocktail, no nausea, pain moderate, meds make her sleepy FMR OB AP PN: Obj - Maternal Vital signs: BP: 107/52 HR: 80 RR: 18 Tmax: 98.6 - Urine output I&O: 07/30/20 07/31/20 08/01/20 06:59 06:59 06:59 Intake Total 3743 Output Total 100 Balance 3643 Emesis of 100 mL last night after receiving GI cocktail. 4 unmeasured voids. - Heart Tones Baseline: 125 (reactive) Variability: moderate Acceleration: present Deceleration: absent FMR OB AP PN: Exam - Physical Exam General: NAD, awake, alert and oriented HEENT: normocephalic and atraumatic, no scleral icterus, grossly normal vision, grossly normal hearing Heart: RRR, normal S1/S2, no murmurs/rubs/gallops General: CTAB, no respiratory distress Abdomen: soft, gravid Deviation from normal: moderate TTP in RUQ and epigastric area Psychiatric: intact recent and remote memory, normal mood and affect FMR OB AP PN: Data - Labs Lab results: Laboratory Results - last 24 hr 07/31/20 07/31/20 14:00 16:00 Sodium 136 Potassium 4.0 Chloride 104 Carbon Dioxide 21 L Anion Gap 15 BUN 8 Creatinine 0.62 Estimated GFR (MDRD) Greater than 90 Glucose 82 Calcium 9.3 Total Bilirubin 0.3 AST 22 ALT 20 Alkaline Phosphatase 176 H Serum Total Protein 7.6 Albumin 3.6 Globulin 4.0 H Albumin/Globulin Ratio 0.9 L Lipase 13 SARS CoV-2 Rapid Source Nasopharyngeal Swab SARS-CoV-2 RNA (TALISHA) Not Detected FMR OB AP PN: A/P Disposition: observe on L&D today. Continue to monitor for pain control and PO tolerance. Discussion: Date/Time: 08/01/2046 19 yo F at 34.6 wga here for: Abdominal pain, improved Known cholelithiasis - nausea resolved this AM, received PO phenergan last night - RUQ sono without evidence of cholecystitis - Advised patient to try 1 tab of Tylenol #3 for pain control to minimize sedating effects - strict I/Os - start liquids of fat restricted diet - start another bag of D5 LR Decreased FM, resolved - BPP 02/22 - NST qshift Borderline growth - repeat growth on 07/31 at 12th %ile This H&P was discussed with Dr. Reyez, who agrees with the above documentation and plan. Signature: Janna Delvalle MD PGY2 Addendum - Attending - Attending Attestation Date/Time: 08/05/20 6653 I personally evaluated the patient and discussed the management with Dr. Delvalle I agree with the History, Examination, Assessment and Plan documented above with any addition or exceptions noted below. Pt npo over night. abdominal pain better controlled now with tylenol 3 2tabs po q6hrs. However makes pt feel oversedated. Will advance diet and reduce tylenol 3 to 1 tab po q4hr prn pain.
[2020-08-01] MEDS ORDERED: Dextrose 5%-Lactated Ringers 1,000 ML IV SCH (07:15)
--- NOTE | 2020-08-01 18:38 | ULT ---
ULTRASOUND BIOPHYSICAL PROFILE: HISTORY: distress FINDINGS: A single live intrauterine gestation is seen. heart rate:163bpm RON: 4.7 cm Placenta: Anterior without placenta previa OB biophysical profile: tone: 2 breathin movements: 2 Amniotic fluid:0 IMPRESSION: 1. The ultrasound biophysical profile score is 6 out of 8. 2. Oligohydramnios
[2020-08-01] MEDS: Lactated Ringer's 1,000 ML IV SCH (19:05)
[2020-08-01 19:58] VITALS: TEMP 98.4
[2020-08-01] MEDS ORDERED: Butorphanol Tartrate 1 MG/ML VIAL SLOW IVP PRN (20:10)
[2020-08-01] MEDS ORDERED: Butorphanol Tartrate 1 MG/ML VIAL SLOW IVP SCH (20:30)
--- NOTE | 2020-08-01 20:32 | PDOC.BPN ---
<Aby Thibodeaux - Last Filed: 08/01/20 20:32> - Brief Progress Note Encounter Date: 08/01/20 Encounter Time: 19:45 19 yo F at 34.6 wga here for: Abdominal pain - Since ~1700 tonight patient has been experiencing lower abdominal pain that she reports as waxing & waning in intensity but very severe to the point that she is in tears. No contractions palpated or noted on monitor since moving back to L&D. FHTs reassuring w/ 140s baseline & accels noted since transfer back to L&D. s/p T3 @ ~1700 that she states has not helped. Will give stadol 1g now & continue Q6HR PRN for pain control & consider a cervical exam if pain persists and/or contractions are noted on continuous monitoring. Oligohydramnios - RON 4.7 on BPP this PM. Will encourage increased PO hydration as patient reports she did not drink anything all day. Will also aggressively IV hydrate overnight w/ LR @ 150mL/hr & repeat a BPP @ 0800 in the AM. If oligo still present in the AM will likely administer steroid PPX in preparation for possible need for delivery. Known cholelithiasis - nausea resolved this AM, received PO phenergan last night - RUQ sono without evidence of cholecystitis - Advised patient to try 1 tab of Tylenol #3 for pain control to minimize sedating effects - strict I/Os - Continue liquids & fat restricted diet Decreased FM, resolved - BPP 8/8 this AM but 6/8 this evening 2/2 low RON. NST reactive since moving to L&D. - Will continue continuous monitoring overnight for problem #2. Borderline growth - repeat growth on 07/31 at 12th %ile This H&P was discussed with Dr. Carlos, who agrees with the above documentation and plan. <Daniel Carlos - Last Filed: 08/01/20 22:11> Addendum - Attending - Attending Attestation Date/Time: 08/01/20 2210 I personally evaluated the patient and discussed the management with Dr. Thibodeaux. I agree with the History, Examination, Assessment and Plan documented above.
[2020-08-02] MEDS: Lactated Ringer's 1,000 ML IV SCH (02:28)
--- NOTE | 2020-08-02 02:49 | PDOC.OBAPN ---
FMR OB AP PN: Sub - Interval History Hospital Day: 3 Chief Complaint: none Indentification: @ 35 WGA here for cholelithiasis in . Interval History: Pain well controlled with stadol. Patient resting comfortably. FMR OB AP PN: Obj - Maternal Vital signs: BP: 108/53 HR: 88 Tmax: 98.1F Pox: 98% on RA Wt: 87 kg - Urine output I&O: 07/31/20 08/01/20 08/02/20 06:59 06:59 06:59 Intake Total 3743 1600 Output Total 100 900 Balance 3643 700 - Heart Tones Baseline: 150 Variability: moderate Acceleration: present Deceleration: absent Category: category 1 [place] contractions every: mild intermittent contractions and uterine irritability noted FMR OB AP PN: Exam - Physical Exam General: NAD HEENT: normocephalic and atraumatic, MMM Neck: supple, FROM General: no respiratory distress Abdomen: gravid Neurological: cranial nerves II through XII intact (grossly), sensation to pain,touch and proprioception grossly normal - Pelvic Exam SVE: @ 0115 FMR OB AP PN: A/P - Problem List (1) Cholelithiasis affecting in third trimester, antepartum Current Visit: Yes Status: Acute Code(s): O26.613 - LIVER AND BILIARY TRACT DISORD IN , THIRD TRIMESTER; K80.20 - CALCULUS OF GALLBLADDER W/O CHOLECYSTITIS W/O OBSTRUCTION (2) Oligohydramnios antepartum Current Visit: Yes Status: Acute Code(s): O41.00X0 - OLIGOHYDRAMNIOS, UNSP TRIMESTER, NOT APPLICABLE OR UNSP Disposition: 19 yo F at 35 wga here for: Abdominal pain - Intermittent very mild contractions noted on monitor since moving back to L&D but patient reports pain much improved with stadol. FHTs reassuring w/ 150s baseline & accels noted since transfer back to L&D. Will continue stadol Q6HR PRN for pain control. SVE @ 0115 not concerning for active labor, especially given that patient is so much more comfortable now. Will continue to monitor for remainder of night w/ external monitors. Oligohydramnios - RON 4.7 on BPP yesterday PM. Encouraged increased PO hydration & will continue LR @ 150mL/hr with plans to repeat a BPP @ 0800 today to see if this has resolved as patient reported she had no PO hydration yesterday. Known cholelithiasis - nausea resolved this AM, received PO phenergan 2 nights ago - YULI smiley without evidence of cholecystitis so no surgical intervention indicated at this time - Continue liquids & fat restricted diet & strict I&Os. Decreased FM, resolved - BPP 02/22 yesterday AM but 12/23 yesterday PM 2/2 low RON as noted above. NST overall reactive w/ intermittent sleep cycles since moving to L&D. - Will continue continuous monitoring overnight for problem #2. Borderline SGA - Last growth on 07/31 at 12th %ile Discussion: Date/Time: 08/02/20 0249 This H&P was discussed with Dr. Carlos who agrees with the above documentation and plan. Addendum - Attending - Attending Attestation Date/Time: 08/02/20 5782 I personally evaluated the patient and discussed the management with Dr. Thibodeaux. I agree with the History, Examination, Assessment and Plan documented above.
--- NOTE | 2020-08-02 06:09 | PDOC.OBAPN ---
FMR OB AP PN: Obj - Maternal Vital signs: BP: [] HR: [] RR: [] Tmax: [] Pox: []% on [] Wt: [] - Urine output I&O: 07/31/20 08/01/20 08/02/20 06:59 06:59 06:59 Intake Total 3743 2600 Output Total 100 900 Balance 3643 1700 FMR OB AP PN: Exam - Physical Exam General: NAD, awake, alert and oriented HEENT: normocephalic and atraumatic, MMM, grossly normal vision, grossly normal hearing Neck: supple Heart: RRR, normal S1/S2, no murmurs/rubs/gallops, pulses present General: CTAB, no respiratory distress, good air movement, no rales/rhonchi, no wheezing, no retractions Abdomen: soft, gravid Musculoskeletal: FROM in all four extremities Skin: good tugor, capillary refill <2 seconds Psychiatric: intact recent and remote memory, good judgement and insight, normal mood and affect FMR OB AP PN: A/P Disposition: 19 yo F at 35 wga here for: Abdominal pain - Intermittent very mild contractions noted on monitor since moving back to L&D but patient reports pain much improved with stadol. FHTs reassuring w/ 150s baseline & accels noted since transfer back to L&D. Will continue stadol Q6HR PRN for pain control. SVE @ 0115 08/11/2 not concerning for active labor, especially given that patient is so much more comfortable now. Will continue to monitor for remainder of night w/ external monitors. Oligohydramnios - RON 4.7 on BPP yesterday PM. Encouraged increased PO hydration & will continue LR @ 150mL/hr with plans to repeat a BPP @ 0800 today to see if this has resolved as patient reported she had no PO hydration yesterday. Known cholelithiasis - nausea resolved this AM, received PO phenergan 2 nights ago - RUMiky tafoyao without evidence of cholecystitis so no surgical intervention indicated at this time - Continue liquids & fat restricted diet & strict I&Os. Decreased FM, resolved - BPP 8/8 yesterday AM but 68 yesterday PM 2/2 low RON as noted above. NST overall reactive w/ intermittent sleep cycles since moving to L&D. - Will continue continuous monitoring overnight for problem #2. Borderline SGA - Last growth on 07/31 at 12th %ile Discussion: Date/Time: 08/02/20 0608 This H&P was discussed with [] and [] who agree with the above documentation and plan.
[2020-08-02 06:24] VITALS: BP 100/48
[2020-08-02] MEDS: Acetaminophen/Codeine 30-300mg Tablet PO PRN (08:19)
--- NOTE | 2020-08-02 08:41 | ULT ---
EXAM: US Biophysical Profile PROVIDED CLINICAL HISTORY: History of oligohydramnios. Follow-up evaluation. COMPARISON: 08/01/2020 FINDINGS: Again noted is a single intrauterine gestation in cephalic presentation. Cardiac Doppler demonstrates heart tones with a heart rate of 145 bpm. The placenta is located anteriorly without evidence of placenta previa. Again noted is a decrease in amniotic fluid volume with decrease amnioti c fluid index of 6.4 cm. Calculated amniotic fluid index on prior exam was 4.7 cm. anatomical structures were not evaluated on this exam. A score of 2 was obtained each for tone, breathing, movements, and amniotic fluid v olume. A score of 0 was obtained for amniotic fluid volume on prior exam, but a larger pocket measuring 2 cm x 2 cm is noted on current study. IMPRESSION: 1. Persistent oligohydramnios. 2. Total biophysical profile score is 8 out of 8
--- NOTE | 2020-08-05 10:10 | DIS ---
DATE OF ADMISSION: 07/31/2020 DATE OF DISCHARGE: 08/02/2020 RESIDENT: Shaylee Delvalle MD ADMISSION ATTENDING: Dr. Reyez. DISCHARGE ATTENDING: Dr. Francisco. PRIMARY DIAGNOSES: 1. Cholelithiasis in . 2. 35.0 weeks . 3. Decreased movement, resolved. SECONDARY DIAGNOSES: 1. Borderline growth. 2. Iron deficiency anemia. DISCHARGE MEDICATIONS: 1. Promethazine 25 mg p.o. q.6 hours p.r.n. 2. Acetaminophen with codeine one tab p.o. q.6 hours p.r.n. 3. vitamin 1 tab p.o. daily. HISTORY OF PRESENT ILLNESS AND HOSPITAL COURSE: This 19-year-old G2, P1-0-0-1, presented to Labor and Delivery from clinic, complaining of severe abdominal pain that had been worse over the past 2 weeks. She had nausea and vomiting and was not able to eat much over the past week. She was diagnosed with cholelithiasis at 22 weeks gestation. However, there was no cholecystitis nor change in her liver function tests. Therefore, surgery was not indicated. The patient also had complained of some decreased movement. Continuous monitoring showed a reactive strip. Biophysical profile done on 07/31/2020 was 8/8. The patient was hydrated with over 4 L of IV fluids. She also did start to experience some contraction pain. Her cervical check was 1 cm. She only had intermittent contractions while she was here and these resolved. Her pain was treated with Tylenol No. 3 and the patient was able to tolerate p.o. food and liquids on the day of discharge. Her nausea was controlled with Phenergan. A biophysical profile on 08/01/2020 showed biophysical profile 6/8 for amniotic fluid index of 4.7 cm. This was repeated on 08/02/2020, and amniotic fluid improved to 6.4 cm, giving a biophysical profile of 8/8. A right upper quadrant ultrasound was repeated and again cholelithiasis was demonstrated without evidence of pericholecystic fluid nor common bile duct dilatation. The patient was instructed to follow up with her primary care provider next week. NOTABLE LABS: Chemistry: Sodium 136, potassium 4.0, chloride 104, carbon dioxide 21, BUN 8, creatinine 0.62, glucose 82, calcium 9.3, total bilirubin 0.3, AST 22, ALT 20, alkaline phosphatase 176, lipase 13. COVID negative. DISCHARGE INSTRUCTIONS: 1. Discharge the patient home. 2. Activity as tolerated. 3. Fat restricted diet. The patient was provided with educational handout and told she needs to be very strict with this over the next month of her prior to delivery. Follow up with clinic as scheduled on or sooner if needed. Job ID: [id number]
== END 2020-08-02 09:38 | disposition home or self-care (01) ==
LOC: L&D/OP 12:15 → INTOOBSV 15:42 → 3SW 15:42 → L&D 08-01 20:54
PROVIDERS: ADMIT Family Medicine; ATTEND Family Medicine
DX: O26.613 Liver and biliary tract disorders in pregnancy, third trimester (principal); K80.20 Calculus of gallbladder without cholecystitis without obstruction; O36.8130 Decreased fetal movements, third trimester, not applicable or unspecified; O36.5930 Maternal care for other known or suspected poor fetal growth, third trimester, not applicable or unspecified; O99.013 Anemia complicating pregnancy, third trimester; D50.9 Iron deficiency anemia, unspecified; O41.03X0 Oligohydramnios, third trimester, not applicable or unspecified; Z3A.34 34 weeks gestation of pregnancy; Z20.822 Contact with and (suspected) exposure to COVID-19
CPT/HCPCS: 36415; 59025; 76705; 76815; 76819; 80053; 83690; 87635; 96374; 96375; 96376; 99285; G0378; J0595; J2270; J2405; Q0169; U0003; U0005

== ENCOUNTER 2020-08-15 15:41 | Day surgery (SDC) | payer OTHER ==
[2020-08-15 16:06] VITALS: BMI 31.6
[2020-08-15] MEDS ORDERED: Lactated Ringer's 1,000 ML IV SCH ×2 (16:15)
[2020-08-15 17:11] LABS: ALT (SGPT) 30 U/L (8-55); AST (SGOT) 21 U/L (5-34); Albumin 3.2 g/dL (3.5-5.0); Alkaline Phosphatase 211 U/L (40-110); Anion Gap 11 mmol/L (10-20); BUN (Urea Nitrogen) 8 mg/dL (7.0-18.7); Bilirubin, Total 0.2 mg/dL (0.2-1.2); Calc. Creatinine Clearance 175 mL/min (70-130); Calcium 8.3 mg/dL (7.8-10.44); Carbon Dioxide 23 mmol/L (22-29); Chloride 106 mmol/L (98-107); Globulin 3.3 g/dL (2.4-3.5); Glucose 93 mg/dL (70-105); Potassium 3.8 mmol/L (3.5-5.1); Protein, Total 6.5 g/dL (6.0-8.3); Sodium 136 mmol/L (136-145)
[2020-08-15 17:25] LABS: Bacteria/HPF None Seen HPF (None Seen); Bilirubin Negative (Negative); Blood, Urine Trace (Negative); Calcium Oxalate Crystals Rare HPF (None Seen); Clarity Turbid (Clear); Glucose, Urine (Dipstick) 50 mg/dL (Negative); Ketone, Urine Trace mg/dL (Negative); Leukocyte Negative Leu/uL (Negative); Mucous/LPF Rare LPF (<2+); Nitrite Negative (Negative); Protein, Urine (Dipstick) 50 mg/dL (Neg-Trace); Renal Epithelial 0-3 HPF (None Seen); Squamous Epithelial 0-3 HPF (0-3); WBC/HPF 0-3 HPF (0-3); pH, Urine 6.5 (5.0-9.0)
[2020-08-15 17:26] LABS: Urine Culture Reflex No No
[2020-08-15 17:28] LABS: #Basophils 0.1 thou/uL (0.0-0.2); #Eosinphils 0.1 thou/uL (0.0-0.7); #Lymphocytes 1.9 thou/uL (1.20-3.40); #Monocytes 1.1 thou/uL (0.11-0.59); #Neutrophils 11.2 thou/uL (1.40-6.50); %Basophils 0.6 % (0.0-1.0); %Eosinophils 0.4 % (0.0-10.0); %Lymphocytes 13.2 % (21.0-51.0); %Monocytes 7.4 % (0.0-10.0); %Neutrophils 78.4 % (42.0-75.0); Hemoglobin 10.6 g/dL (12.0-16.0); Mean Corpuscular HGB CONC 32.1 g/dL (32.0-36.0); Mean Corpuscular Hemoglobin 26.4 pg (27.0-31.0); Mean Corpuscular Volume 82.2 fL (78.0-98.0); Mean Platelet Volume 10.1 fL (7.4-10.4); Platelet Count 200 thou/uL (130-400); RBC Distribution Width 14.9 % (11.5-14.5); Red Blood Cell (RBC) Count 4.01 mill/uL (4.20-5.40); White Blood Cell (WBC) Count 14.3 thou/uL (4.8-10.8)
[2020-08-15 19:51] LABS: Amphetamine Not Detected (NotDetected); Barbiturates Screen Not Detected (NotDetected); Benzodiazepine Screen Not Detected (NotDetected); Cocaine Metabolite Screen Not Detected (NotDetected); Medtox Control Line Valid? VALID (VALID); Medtox Reader # READER 4; Methadone Not Detected (NotDetected); Methamphetamine Not Detected (NotDetected); Opiate Screen Not Detected (NotDetected); Oxycodone Screen Not Detected (NotDetected); Phencyclidine (PCP) Not Detected (NotDetected); THC/Cannabinoid Screen Not Detected (NotDetected); Tricyclic Screen Not Detected (NotDetected)
== END 2020-08-15 20:54 | disposition home or self-care (01) ==
LOC: L&D/OP 15:41
PROVIDERS: ATTEND Student in an Organized Health Care Education/Training Program
DX: O99.891 Other specified diseases and conditions complicating pregnancy (principal); R00.0 Tachycardia, unspecified; O99.613 Diseases of the digestive system complicating pregnancy, third trimester; K80.20 Calculus of gallbladder without cholecystitis without obstruction; O99.013 Anemia complicating pregnancy, third trimester; D50.9 Iron deficiency anemia, unspecified; Z3A.34 34 weeks gestation of pregnancy
CPT/HCPCS: 36415; 51701; 80053; 80306; 81001; 84443; 85025; 93005; 93010; 96360; 96361; 99283

== ENCOUNTER 2020-08-18 17:48 | Inpatient (IN) | payer OTHER ==
[~2020-08-18 17:48] MED LIST: Bupivacaine HCl 0.25%/Epi 0.0005/PF 10 ML VIAL FS ONE; ePHEDrine 50 MG/ML VIAL ONE
[2020-08-18] MEDS ORDERED: hydrALAZINE 20 MG/ML VIAL SLOW IVP PRN (18:59)
--- NOTE | 2020-08-18 18:59 | PDOC.FPROB ---
FMR OB H&P: HPI - History of Present Illness Chief Complaint: non-reactive NST sent from clinic History of Present Illness: Pt is a 19yo @ 37.2 wks by 6.3 wk sono who was sent from clinic due to non- reactive NST and BPP 4/10. Pt states that she feels baby move 1-2x/hour. She was admitted 3 days ago for maternal tachycardia and dehydration. She says she continues to have high heart rate and feels "weak and tired". She reports continued RUQ pain. She was diagnosed with cholelithiasis at 22wks gestation. She has been evaluated more than once for this and told she does not have cholecystitis and no indication for surgery. Denies LOF, vaginal bleeding/discharge/itching/pain. Primary Care Physician: HARDEEP Thibodeaux FMR OB H&P: Current - Care : 2 Para: 1 Gestational age: 37.2 Due date: 09/06/20 Dating Criteria: LMP c/w 6.3 wk lottieo Course/Complications: Cholelithiasis since 22 wga Iron deficiency anemia Trichomonas in 1T, completion of abx by patient & partner, DALIA negative Borderline growth 13 %ile Short interpregnancy interval Low lying placenta w/ subchorionic hemorrhage, resolved - OB Labs Blood type: A RH: positive Antibody Screen: negative HIV: negative RPR: negative HepBsAg: negative Rubella: immune Urine drug screen: negative Gonorrhea: negative Chlamydia: negative Pap Smear: NILM 1 hour gtt: 81/146/103 GBS: negative H&H: 10.6/33 on 08/15 Platelets: 200 Additional labs: Flu 05/20/20, Tdap 06/18/20 - Additional Ultrasound Additional: 08/18/19: non reactive NST, BPP 4/10, MVP 4cm, RON 4cm EFW 12% on 07/31/20 FMR OB H&P: History - Past Medical History PMH: cholelithiasis - OB History OB History: 1 , 12/2018 @ 40wks, no complications - GLASS SMOOTHER History GLASS SMOOTHER History: Trich in 1T, negative DALIA pap NILM - Surgical History Sx History: tonsillectomy - Social History Social History: denies T/A/D. Lives with and 1 child - Family History Family History: Mother: gallstones requiring cholecystectomy at age 21 FMR OB H&P: Medications - Current Home Medications: Medication Instructions Recorded Confirmed Type Vits96/Iron Fum/Folic 1 tab PO DAILY 07/31/20 08/18/20 History [ Tablet] Allergies/Adverse Reactions: Allergies Allergy/AdvReac Type Severity Reaction Status Date / Time No Known Allergies Allergy Verified 08/18/20 18:49 FMR OB H&P: ROS - Review of Systems General: denies: fever/chills, weight/appetite/sleep changes Eyes: denies: vision changes, scotomas ENT: denies: nasal congestion, rhinorrhea Cardiovascular: denies: chest pain, edema Respiratory: denies: cough, congestion, shortness of breath Gastrointestinal: reports: abdominal pain. denies: nausea, vomiting, diarrhea Genitourinary (Female): denies: dysuria, vaginal discharge, vaginal pain, vaginal bleeding Musculoskeletal: denies: pain, stiffness Neurologic: denies: syncope, headache Integumentary: denies: itching, rash Hematologic/Lymphatic: denies: prolonged or excessive bleeding FMR OB H&P: Vital Signs - Maternal Vital signs: BP 133/64, HR 105 - Heart Tones Baseline: 150 Variability: moderate Acceleration: present Deceleration: absent Category: category 1 FMR OB H&P: Physical Exam - Physical Exam General: NAD, awake, alert and oriented HEENT: normocephalic and atraumatic, grossly normal vision, grossly normal hearing Neck: supple, FROM, trachea midline Chest: non-tender to palpation Heart: normal S1/S2, no murmurs/rubs/gallops, pulses present, no edema Deviation from normal: tachycardic General: CTAB, no respiratory distress, no wheezing Abdomen: soft, gravid Deviation from normal: mild tenderness to palpation of RUQ Musculoskeletal: normal gait and station, no misalignment/asymmetry, no atrophy Neurological: cranial nerves II through XII intact, no focal deficit Skin: no rash, capillary refill <2 seconds, no jaundice Lymphatic: no unusual bruising or bleeding Psychiatric: intact recent and remote memory, good judgement and insight, normal mood and affect - Pelvic Exam Vulva: normal hair distribution Deviation from normal: thick, white discharge SVE: 1.5/60/-2 Burr score: 7 Membranes: intact Presentation: vertex FMR OB H&P: A/P Discussion: Date/Time: 08/18/208 19 yo F at 37.2wks who presented from clinic for non-reactive NST mIOL 2/2 growth restriction <3rd percentile sIUP 37.2wks - US 08/18/20: EFW 1%, BPP: 10/10, MVP 4.6, vertex, anterior placenta -US on 07/31/20 EFW 12% -SVE: 1.5/60/-2, Burr 6, placed Cook's balloon -FHT: baseline 150/mod sofya/+accel, no decels -IVF: 1L bolus now, then D5W @ 125ml/hr -continuous monitor Cholethiasis in -Hx of Cholelithiasis since 22wga, continues to have RUQ pain -Seen earlier this month, no surgical indication -recommended to f/u with gen surg after delivery Vaginal Discharge -likely candidiasis -treat after delivery Maternal tachycardia -likely 2/2 dehydration, will give 1L bolus IVF hx of Trich in 1T - s/p tx w/ negative DALIA hx of iron deficiency anemia - on iron Short interpreg interval -aware This H&P was discussed with Dr. Laurent and Dr. Carrillo who agree with the above documentation and plan. Addendum - Attending - Attending Attestation Date/Time: 08/18/201837 I personally evaluated the patient and discussed the management with Dr. Gordillo I agree with the History, Examination, Assessment and Plan documented above with any addition or exceptions noted below. Will obtain growth and BPP. Currently NST is reactive. Remains symptomatic with gallstone. Poor PO intake per patient. Dispo pending results of monitoring and well being. Huma
--- NOTE | 2020-08-18 19:51 | ULT ---
EXAM: Limited OB ultrasound with biophysical profile COMPARISON: 08/02/2020 HISTORY: female. Evaluate size, dates, and anatomy. TECHNIQUE: Multiplanar grayscale and color Doppler transabdominal sonographic images are obtained. FINDINGS: There is a single intrauterine gestation in cephalic presentation. Cardiac Doppler demonstr ates heart tones with a heart rate of 163 beats per minute. The placenta is located anteriorly without evidence of placenta previa. Lower uterine segment is not well assessed due to sig nificant shadowing from head. Cervical length is unable to be obtained. There is a decrease in amniotic fluid including decrease in amniotic fluid index of 4.8 cm. Amniotic fluid index on prior study was 6.4 cm biometry measurements: BPD 8.54 cm -- 34 weeks 3 days HC 30.07 cm -- 33 weeks 2 days AC 29.22 cm -- 33 weeks 2 days FL 6.49 cm -- 33 weeks 3 days The estimated gestational age by ultrasound is 33 weeks 2 days with an JOHNNY on10/04/2020. Gestational a ge by the last menstrual period is 37 weeks 2 days. The estimated weight by ultrasound is 2190 g (4 pounds, 13 ounces). This represents 1 percentil e for weight. anatomical structures were not evaluated on this examination. A score of 0 was obtained for amniotic fluid volume. A score of 2 was obtained each for tone, f etal breathing, and movements. Adnexal structures are not well visualized on this exam. IMPRESSION: 1. Oligohydramnios with amniotic fluid index of 4.8 cm. RON on prior study was 6.4 cm. 2. Single intrauterine gestation in cephalic presentation with heart tones documented. Estimat ed gestational age by ultrasound is 33 weeks 2 days with JOHNNY on 10/04/2020. This does represent a discrepancy in gestational age by the last menstrual period of 37 weeks and 2 days. 3. Estimated weight is 2190 g (4 pounds, 13 ounces. 4. A biophysical profile score of 6 out of 8 was obtained.
--- NOTE | 2020-08-18 19:52 | ULT ---
Please see Limited OB ultrasound for further details.
[2020-08-18] MEDS ORDERED: Lidocaine 1% (PF) 30 ML VIAL SC PRN (20:40)
[2020-08-18] MEDS ORDERED: Acetaminophen 500 MG TAB PO PRN (20:40)
[2020-08-18] MEDS ORDERED: Methylergonovine 0.2 MG/ML VIAL IM PRN (20:40)
[2020-08-18] MEDS ORDERED: Misoprostol 200 MCG TAB PR PRN (20:40)
[2020-08-18] MEDS ORDERED: Ibuprofen 800 MG TAB PO PRN (20:40)
[2020-08-18] MEDS ORDERED: Diphenoxylate HCl/Atropine Tablet PO PRN ×2 (20:40)
[2020-08-18] MEDS ORDERED: Ondansetron PF 4 MG/2 ML Vial IVP PRN (20:40)
[2020-08-18] MEDS ORDERED: Carboprost 250 MCG/ML AMP IM PRN (20:40)
[2020-08-18] MEDS ORDERED: NS / Oxytocin 40 units/1000ml 1,000 ML IV PRN (20:40)
[2020-08-18] MEDS ORDERED: NS w/ Oxytocin 30 units 500 ML IV PRN (20:49)
[2020-08-18] MEDS ORDERED: Lactated Ringer's 1,000 ML IV SCH (21:00)
[2020-08-18 21:32] LABS: Hemoglobin 11.1 g/dL (12.0-16.0); Mean Corpuscular HGB CONC 33.2 g/dL (32.0-36.0); Mean Corpuscular Hemoglobin 27.6 pg (27.0-31.0); Mean Platelet Volume 10.2 fL (7.4-10.4); Platelet Count 196 thou/uL (130-400); Red Blood Cell (RBC) Count 4.02 mill/uL (4.20-5.40); White Blood Cell (WBC) Count 17.8 thou/uL (4.8-10.8)
[2020-08-18] MEDS: Dextrose 5%-Lactated Ringers 1,000 ML IV SCH (22:05)
[2020-08-18 22:13] LABS: Syphilis Antibody Nonreactive (Nonreactive); Syphilis Antibody Index 0.06 S/CO (<1.00 Non-Reactive)
[2020-08-18 22:42] VITALS: BMI 32.4
[2020-08-19] MEDS ORDERED: Acetaminophen 500 MG TAB PO SCH (00:30)
[2020-08-19 01:25] LABS: HBSAg Index 0.17 S/CO (0-0.99); Hep B Surf Ag Non-Reactive S/CO (NonReactive)
--- NOTE | 2020-08-19 02:55 | PDOC.LDPN ---
Labor & Delivery Progress Note - Objective Vital signs reviewed and normal: yes General: NAD, resting FHT: category 1, variability present [place] contractions every: absent Procedures: cook's balloon placed on 08/18/20 @ 2230 -: 19 yo F at 37.2wks who presented from clinic for non-reactive NST mIOL 2/2 growth restriction <3rd percentile sIUP 37.3wks - US 08/18/20: EFW 1%, BPP: 10/10, MVP 4.6, vertex, anterior placenta -US on 07/31/20 EFW 12% -SVE @ 2230: 1.5/60/-2, Burr 6, placed Cook's balloon -exam @ 0230: balloon still in place, pt is having some lower abd cramping with balloon, she was requesting placement of epidural but after discussion she decided to wait -FHT: Cat 1, baseline 150/mod sofya/+accel, no decels. No ctx on monitor -continuous monitor -next check @ 0630 Cholethiasis in -Hx of Cholelithiasis since 22wga, continues to have RUQ pain -Seen earlier this month, no surgical indication -recommended to f/u with gen surg after delivery Vaginal Discharge -likely candidiasis -treat after delivery Maternal tachycardia -likely 2/2 dehydration, will give 1L bolus IVF hx of Trich in 1T - s/p tx w/ negative DALIA hx of iron deficiency anemia - on iron Short interpreg interval -aware Addendum - Attending - Attending Attestation Date/Time: 08/19/20 0420 I personally evaluated the patient and discussed the management with Dr. Gordillo I agree with the History, Examination, Assessment and Plan documented above with any addition or exceptions noted below. 19 yo female at 37.3 wks by 6.3 wk sono admitted for mIOL 2/2 FGR < 3rd percentile. Patient doing well but some discomfort with balloon. Cat 1 tracing. Pit per protocol or as patient can tolerate pain level at this time. RON borderline and may benefit from amnioinfusion at some time. Continue to monitor. Huma
[2020-08-19] MEDS ORDERED: Fentanyl 4 mcg/Bup 0.1% Cadd 100 ML ONE (04:48)
[2020-08-19 05:30] LABS: SARS-CoV-2 PCR by NAA Not Detected (NotDetected)
--- NOTE | 2020-08-19 06:12 | PDOC.LDPN ---
Labor & Delivery Progress Note - Subjective Subjective: vaginal pressure - Objective Vital signs reviewed and normal: yes General: NAD SVE: /-2 FHT: category 1, variability present [place] contractions every: absent -: 19 yo F at 37.2wks who presented from clinic for non-reactive NST mIOL 2/2 growth restriction <3rd percentile sIUP 37.3wks - US 08/18/20: EFW 1%, BPP: 10/10, MVP 4.6, vertex, anterior placenta -US on 07/31/20 EFW 12% -SVE @ 2230: 1.560/-2, Burr 6, placed Cook's balloon -exam @ 0230: balloon still in place, pt is having some lower abd cramping with balloon, she was requesting placement of epidural but after discussion she decided to wait -SVE @ 0430: /-2, balloon out, will start pit, epidural ordered -FHT: Cat 1, baseline 150/mod sofya/+accel, no decels. No ctx on monitor -continuous monitor -next check @ 0830 Cholethiasis in -Hx of Cholelithiasis since 22wga, continues to have RUQ pain -Seen earlier this month, no surgical indication -recommended to f/u with gen surg after delivery Vaginal Discharge -likely candidiasis -treat after delivery Maternal tachycardia -likely 2/2 dehydration, will give 1L bolus IVF hx of Trich in 1T - s/p tx w/ negative DALIA hx of iron deficiency anemia - on iron Short interpreg interval -aware Addendum - Attending - Attending Attestation Date/Time: 08/19/20 2938 I personally evaluated the patient and discussed the management with Dr. Gordillo I agree with the History, Examination, Assessment and Plan documented above with any addition or exceptions noted below. 19 yo female at 37.3 wks by 6.3 wk sono admitted for mIOL 2/2 FGR < 3rd percentile. Patient doing well. Requesting epidural. Balloon out now 4 cm. Start pitocin per protocol. Cat 1 tracing. Repeat exam in 2 to 4 hours or prn. Caution with AROM or SROM. May need amnioinfusion at some time. Huma
[2020-08-19] MEDS ORDERED: Lactated Ringer's 500 ML IV PRN (06:15)
[2020-08-19] MEDS ORDERED: Communication Order-Pharmacy FS SCH (06:15)
[2020-08-19] MEDS ORDERED: Acetaminophen 325 MG TAB PO PRN (06:15)
[2020-08-19] MEDS ORDERED: ePHEDrine 50 MG/ML VIAL SLOW IVP PRN (06:15)
[2020-08-19] MEDS ORDERED: Naloxone HCl 0.4 mg/ml Vial IVP PRN ×2 (06:15)
[2020-08-19] MEDS ORDERED: Promethazine HCl 25 MG/ML VIAL IM PRN (06:15)
[2020-08-19] MEDS ORDERED: Ondansetron PF 4 MG/2 ML Vial IVP PRN (06:15)
[2020-08-19] MEDS ORDERED: diphenhydrAMINE 50 MG/ML VIAL IVP PRN (06:15)
[2020-08-19] MEDS ORDERED: Fentanyl 4 mcg/Bupivacaine 0.1% Cassette 100 ML EPIDURAL SCH (06:15)
--- NOTE | 2020-08-19 09:25 | PDOC.LDPN ---
Labor & Delivery Progress Note - Subjective Subjective: comfortable - Objective Abnormal vital signs: low maternal BP, now improved otherwise VS wnl General: NAD, resting SVE: 50/-2 FHT: category 1, variability present [place] contractions every: 3 -: 19 yo F at 37.2wks who presented from clinic for non-reactive NST mIOL 2/2 growth restriction <3rd percentile sIUP 37.3wks - US 08/18/20: EFW 1%, BPP: 10/10, MVP 4.6, vertex, anterior placenta -US on 07/31/20 EFW 12% -SVE @ 2230: 1.5/60/-2, Burr 6, placed Cook's balloon -Exam @ 0230: balloon still in place, pt is having some lower abd cramping with balloon, she was requesting placement of epidural but after discussion she decided to wait -SVE @ 0430: /-2, balloon out, will start pit, epidural ordered -SVE @ 0700 /-2, cat 1 strip FHT 140/mod/+accel, no decel, ctx q2-4 - Repeat SVE in 4 hours or sooner if clinically indicated - continue FHT monitoring Cholethiasis in -Hx of Cholelithiasis since 22wga, continues to have RUQ pain -Seen earlier this month, no surgical indication -recommended to f/u with gen surg after delivery Vaginal Discharge -likely candidiasis -treat after delivery Maternal tachycardia -likely 2/2 dehydration, will give 1L bolus IVF hx of Trich in 1T - s/p tx w/ negative DALIA hx of iron deficiency anemia - on iron Short interpreg interval -aware
--- NOTE | 2020-08-19 13:47 | PDOC.LDPN ---
Labor & Delivery Progress Note - Subjective Subjective: comfortable - Objective Vital signs reviewed and normal: yes General: NAD SVE: 80/0 FHT: category 2 (intermittently minimal variability, occasional variable decel) AROM: clear fluid -: 19 yo F at 37.2wks who presented from clinic for non-reactive NST mIOL 2/2 growth restriction <3rd percentile sIUP 37.3wks - US 08/18/20: EFW 1%, BPP: 10/10, MVP 4.6, vertex, anterior placenta -US on 07/31/20 EFW 12% -SVE @ 2230: 1.5/60/-2, Burr 6, placed Cook's balloon -Exam @ 0230: balloon still in place, pt is having some lower abd cramping with balloon, she was requesting placement of epidural but after discussion she decided to wait -SVE @ 0430: /-2, balloon out, will start pit, epidural ordered -SVE @ 0700 /-2, cat 1 strip FHT 140/mod/+accel, no decel, ctx q2-4 -SVE @ 1345 6/80/0, intermittent cat 2 strip for minimal variability, occasional variable decels, continues to have periods of mod variabiltiy with accels -AROM performed, clear fluid -Repeat SVE in 2 hrs Cholethiasis in -Hx of Cholelithiasis since 22wga, continues to have RUQ pain -Seen earlier this month, no surgical indication -recommended to f/u with gen surg after delivery Vaginal Discharge -likely candidiasis -treat after delivery Maternal tachycardia -likely 2/2 dehydration, will give 1L bolus IVF hx of Trich in 1T - s/p tx w/ negative DALIA hx of iron deficiency anemia - on iron Short interpreg interval -aware
[2020-08-19] MEDS ORDERED: Lactated Ringer's 1,000 ML IV PRN (14:12)
--- NOTE | 2020-08-19 16:17 | PDOC.OPDEL ---
OB Operative/Delivery Note Delivery Dr/Surgeon: Kristen - Additional Findings/Plan Compilations/Other Findings: Delivering Physician: Gabby/Pam Attending: Pam Procedure: Spontaneous Vaginal Delivery - Precipitous Anesthesia: epidural EBL 150 cc, unable to collect QBL due to precipitous delivery Pre-op Diagnosis: 1. Early term intrauterine , mIOL 2. Oligohydramnios 3. SGA vs IUGR, EFW 1%tile 4. Short interval Post-op Diagnosis: 1. Early term intrauterine , delivered 2. same as above Indications: A 19 y/o female presented to L&D for decreased movement, non-reactive NST. Found to have oligohydramnios, poor growth and admitted for medical IOL. Delivery Note: This is 19 yo F @ 37.3 wks who delivered a viable F infant at 1529. Following an uneventful antepartum course, a vigorous female was delivered precipitously onto the bed. Nuchal cord x 1. Nurse at bedside reduced the nuchal cord and delivered the anterior shoulder and body of the infant. The head was held down and mouth and nares were bulb suctioned. Cord clamped and cut and cord blood collected. Placenta delivered intact [place] presentation with a 3 vessel cord noted. Fundal massage was performed and the fundus was firm. The cervix and vagina were inspected and found to have 2nd degree perineal laceration repaired with 3.0 vicryl in the usual fashion achieving good approximation and hemostasis. Bilateral periurethral lacerations which were hemostatic not requiring repair. went to nursery in good condition for routine care. Apgars were 8/9 at 1 & 5 minutes, respectively. Patient tolerated delivery well and went to after routine recovery/care. Raad Pierre DO, PGY-1 Attending Addendum: I was present for and supervised the entire delivery. I agree with the above documentaiton.
[2020-08-19] MEDS ORDERED: Milk Of Magnesia 30 ML UDCUP PO PRN (17:48)
[2020-08-19] MEDS ORDERED: Bisacodyl 10 MG SUPP PR PRN (17:48)
[2020-08-19] MEDS ORDERED: hydrALAZINE 20 MG/ML VIAL SLOW IVP PRN (17:48)
[2020-08-19] MEDS ORDERED: Lanolin Ointment 7 GM TUBE TOP PRN (17:48)
[2020-08-19] MEDS ORDERED: NS w/ Oxytocin 30 units 500 ML IVPB SCH (18:00)
[2020-08-19] MEDS: Dextrose 5%-Lactated Ringers 1,000 ML IV SCH ×2 (18:34→18:35)
[2020-08-19] MEDS: Ibuprofen 800 MG TAB PO SCH (21:10)
[2020-08-19] MEDS: Docusate Calcium (SURFAK) 240 MG CAP PO SCH (21:10)
--- NOTE | 2020-08-20 07:45 | PDOC.PP ---
Post Progress Note Post Day #: 1 Subjective: No acute overnight events. Feeling well this AM. Light VB, less than period. Ambulating without difficulty. Desires 24 hr discharge. PO intake tolerated: yes Flatus: yes Ambulation: yes Vital Signs (12 hours) Temp Pulse Resp BP Pulse Ox 08/19/20 23:45 97.7 F 83 16 105/53 L 98 08/19/20 20:12 98.2 F 102 H 12 111/52 L 99 Weight Weight 88.451 kg - Physical Examination General: NAD Cardiovascular: no m/r/g, RRR Respiratory: clear to auscultation bilaterally Abdominal: + bowel sounds, no distention Deviation from normal: non-tender abdomen Fundus firm & at: below umbilicus Extremities: negative homans (B) Skin: no rash Neurological: no gross focal deficits Psychiatric: A&Ox3, normal affect Result Diagrams: 08/18/20 21:17 Additional Labs: Post Labs Hep Bs Antigen Non-Reactive S/CO (NonReactive) 08/18/20 21:17 Blood Type A POSITIVE 08/18/20 21:17 - Assessment/Plan sIUP s/p 2nd degree perineal laceration Delivered viable female infant yesterday 152 via precipitous . Light VB, improving. - encourage ambulation - continue PNV, iron - pelvic rest x 6 weeks - ibuprofen, ice pack PRN for pain Cholelithiasis of - aware Short interpregnancy interval - aware Dispo: DC later this afternoon pending clinical course of infant Addendum - Attending - Attending Attestation Date/Time: 08/20/20 0938 I personally evaluated the patient and discussed the management with Dr. Pierre. I agree with the History, Examination, Assessment and Plan documented above with any addition or exceptions noted below. possible d/c this afternoon. progressing well.
[2020-08-20] MEDS: Ibuprofen 800 MG TAB PO SCH ×2 (08:20→14:05)
[2020-08-20] MEDS: Ferrous Sulfate 325 MG TAB PO SCH ×2 (08:20→15:47)
[2020-08-20] MEDS: Docusate Calcium (SURFAK) 240 MG CAP PO SCH (08:31)
[2020-08-20] MEDS ORDERED: Prenatal Vitamin 1 TAB PO SCH (09:00)
[2020-08-20] MEDS ORDERED: Adacel (T-DAP) 0.5 ML SYRINGE IM ONE (09:00)
[2020-08-20] MEDS ORDERED: Fluconazole 100 MG TAB PO SCH (09:00)
[2020-08-20 11:50] VITALS: BP 99/53; TEMP 98.9
== END 2020-08-20 17:40 | disposition home or self-care (01) | DRG 806 ==
LOC: L&D/OP 17:48 → L&D 21:32 → 3SW 08-19 18:05
PROVIDERS: ADMIT Student in an Organized Health Care Education/Training Program; ATTEND Student in an Organized Health Care Education/Training Program
PROC: 10E0XZZ Delivery of Products of Conception, External Approach (ICD-10-PCS; principal; 2020-08-19)
PROC: 0KQM0ZZ Repair Perineum Muscle, Open Approach (ICD-10-PCS; 2020-08-19)
PROC: 10907ZC Drainage of Amniotic Fluid, Therapeutic from Products of Conception, Via Natural or Artificial Opening (ICD-10-PCS; 2020-08-19)
DX: O36.5930 Maternal care for other known or suspected poor fetal growth, third trimester, not applicable or unspecified (principal); O98.82 Other maternal infectious and parasitic diseases complicating childbirth; Z37.0 Single live birth; O41.03X0 Oligohydramnios, third trimester, not applicable or unspecified; Z3A.37 37 weeks gestation of pregnancy; O99.62 Diseases of the digestive system complicating childbirth; K80.20 Calculus of gallbladder without cholecystitis without obstruction; B37.3 Candidiasis of vulva and vagina; Z20.822 Contact with and (suspected) exposure to COVID-19; E86.0 Dehydration; O99.284 Endocrine, nutritional and metabolic diseases complicating childbirth; R00.0 Tachycardia, unspecified; O99.892 Other specified diseases and conditions complicating childbirth; O26.893 Other specified pregnancy related conditions, third trimester; O36.8130 Decreased fetal movements, third trimester, not applicable or unspecified; O69.81X0 Labor and delivery complicated by cord around neck, without compression, not applicable or unspecified; O62.3 Precipitate labor; O70.1 Second degree perineal laceration during delivery; O71.82 Other specified trauma to perineum and vulva
CPT/HCPCS: 36415; 51702; 76815; 76819; 85027; 86780; 86850; 86900; 86901; 87340; 87635; 99285; J2405; J2590; J3490; U0003; U0005

== ENCOUNTER 2020-10-13 10:16 | Emergency (ER) | payer OTHER ==
[2020-10-13] MEDS ORDERED: Bacitracin 1 PK ONE (12:06)
== END 2020-10-13 13:22 | disposition home or self-care (01) ==
LOC: ER/OP 10:16 → ERS 10:16
DX: S99.921A Unspecified injury of right foot, initial encounter (principal); X58.XXXA Exposure to other specified factors, initial encounter
CPT/HCPCS: 99283

== ENCOUNTER 2020-11-14 06:48 | Emergency (ER) | payer OTHER ==
[2020-11-14 09:59] LABS: #Basophils 0.1 thou/uL (0.0-0.2); #Eosinphils 0.1 thou/uL (0.0-0.7); #Lymphocytes 2.6 thou/uL (1.20-3.40); %Basophils 0.6 % (0.0-1.0); %Eosinophils 0.6 % (0.0-10.0); %Lymphocytes 16.2 % (21.0-51.0); %Monocytes 6.1 % (0.0-10.0); %Neutrophils 76.5 % (42.0-75.0); Hemoglobin 11.9 g/dL (12.0-16.0); Mean Corpuscular Hemoglobin 26.1 pg (27.0-31.0); Mean Corpuscular Volume 81.6 fL (78.0-98.0); Mean Platelet Volume 8.8 fL (7.4-10.4); Platelet Count 295 thou/uL (130-400); RBC Distribution Width 13.9 % (11.5-14.5); Red Blood Cell (RBC) Count 4.56 mill/uL (4.20-5.40); White Blood Cell (WBC) Count 15.7 thou/uL (4.8-10.8)
[2020-11-14] MEDS ORDERED: Lidocaine 1% w/Epinephrine 1:100K 20 ML VIAL ONE (10:03)
[2020-11-14] MEDS ORDERED: HYDROcodone/Acetaminophen 10/325 mg Tablet ONE (10:03)
[2020-11-14 10:11] LABS: BHCG - Serum Negative (NEGATIVE); Pregs Control Background? CLEAR/WHITE (CLR/WHITE); Pregs Control Bar Appear? YES (CONTROL BAR)
[2020-11-14 10:27] LABS: ALT (SGPT) 13 U/L (8-55); AST (SGOT) 17 U/L (5-34); Albumin 4.1 g/dL (3.5-5.0); Alkaline Phosphatase 86 U/L (40-110); Anion Gap 12 mmol/L (10-20); BUN (Urea Nitrogen) 14 mg/dL (7.0-18.7); Bilirubin, Total 0.4 mg/dL (0.2-1.2); Calc. Creatinine Clearance 0 mL/min (70-130); Carbon Dioxide 24 mmol/L (22-29); Chloride 105 mmol/L (98-107); Glucose 95 mg/dL (70-105); Potassium 4.1 mmol/L (3.5-5.1); Protein, Total 8.1 g/dL (6.0-8.3); Sodium 137 mmol/L (136-145)
[2020-11-14 10:43] LABS: Bilirubin Negative (Negative)
[2020-11-14 10:45] LABS: Clarity Cloudy (Clear); Specific Gravity, Urine 1.023 (1.002-1.036)
[2020-11-14 10:46] LABS: Blood, Urine Unable to Interpret (Negative); Glucose, Urine (Dipstick) Unable to Interpret mg/dL (Negative); Ketone, Urine Unable to Interpret mg/dL (Negative); Leukocyte Unable to Interpret (Negative); Nitrite Unable to Interpret (Negative); Protein, Urine (Dipstick) Unable to Interpret mg/dL (Neg-Trace); Urobilinogen UNABLE TO INTERPRET mg/dL (Less than 2); pH, Urine 5.7 (5.0-9.0)
[2020-11-14 10:50] LABS: RBC/HPF Greater than 50 HPF (0-3); WBC/HPF 21-50 HPF (0-3)
[2020-11-14 10:51] LABS: Bacteria/HPF 2+ HPF (None Seen)
== END 2020-11-14 12:13 | disposition home or self-care (01) ==
LOC: ERS 06:48
DX: L02.415 Cutaneous abscess of right lower limb (principal)
CPT/HCPCS: 10061; 36415; 80053; 81003; 81015; 84703; 85025; 87086

== ENCOUNTER 2020-12-27 01:28 | Emergency (ER) | payer OTHER ==
[2020-12-27 01:49] LABS: #Basophils 0.1 thou/uL (0.0-0.2); #Eosinphils 0.1 thou/uL (0.0-0.7); #Lymphocytes 3.7 thou/uL (1.20-3.40); #Neutrophils 9.4 thou/uL (1.40-6.50); %Basophils 0.5 % (0.0-1.0); %Eosinophils 0.6 % (0.0-10.0); %Lymphocytes 25.6 % (21.0-51.0); %Monocytes 7.2 % (0.0-10.0); %Neutrophils 66.1 % (42.0-75.0); Mean Corpuscular HGB CONC 33.6 g/dL (32.0-36.0); Mean Corpuscular Hemoglobin 26.8 pg (27.0-31.0); Mean Corpuscular Volume 79.6 fL (78.0-98.0); Mean Platelet Volume 8.9 fL (7.4-10.4); Platelet Count 303 thou/uL (130-400); RBC Distribution Width 14.3 % (11.5-14.5); White Blood Cell (WBC) Count 14.3 thou/uL (4.8-10.8)
[2020-12-27 02:12] LABS: ALT (SGPT) 10 U/L (8-55); AST (SGOT) 14 U/L (5-34); Albumin 3.6 g/dL (3.5-5.0); Alcohol Less than 10 mg/dL (Less than 10); Alkaline Phosphatase 68 U/L (40-110); Anion Gap 11 mmol/L (10-20); BUN (Urea Nitrogen) 13 mg/dL (7.0-18.7); Bilirubin, Total Less than 0.2 mg/dL (0.2-1.2); Calc. Creatinine Clearance 0 mL/min (70-130); Calcium 8.8 mg/dL (7.8-10.44); Carbon Dioxide 23 mmol/L (22-29); Chloride 110 mmol/L (98-107); Globulin 3.4 g/dL (2.4-3.5); Glucose 110 mg/dL (70-105); Lipase 27 U/L (8-78); Potassium 3.5 mmol/L (3.5-5.1); Sodium 140 mmol/L (136-145)
[2020-12-27 02:20] LABS: BHCG - Serum Negative (NEGATIVE); Pregs Control Background? CLEAR/WHITE (CLR/WHITE); Pregs Control Bar Appear? YES (CONTROL BAR)
[2020-12-27] MEDS ORDERED: Iopamidol-370 76% 500 ML 1 ML ONE (10:13)
== END 2020-12-27 04:33 | disposition home or self-care (01) ==
LOC: ERS 01:28
DX: S06.9X9A Unspecified intracranial injury with loss of consciousness of unspecified duration, initial encounter (principal); M25.571 Pain in right ankle and joints of right foot; M54.5 Low back pain; V89.2XXA Person injured in unspecified motor-vehicle accident, traffic, initial encounter
CPT/HCPCS: 70450; 71260; 72125; 74177; 80053; 80307; 83690; 84703; 85025; G0390; Q9967

== ENCOUNTER 2021-03-04 10:41 | Emergency (ER) | payer OTHER | END 2021-03-04 12:43 | disposition home or self-care (01) | LOC: ERS 10:41 | DX: J00 Acute nasopharyngitis [common cold] (principal) | CPT/HCPCS: 87081; 87430; 99283 ==

== ENCOUNTER 2021-09-24 16:49 | Emergency (ER) | payer OTHER ==
[2021-09-24 17:29] LABS: #Basophils 0.1 thou/uL (0.0-0.2); #Eosinphils 0.1 thou/uL (0.0-0.7); #Lymphocytes 1.4 thou/uL (1.20-3.40); #Monocytes 0.9 thou/uL (0.11-0.59); #Neutrophils 12.6 thou/uL (1.40-6.50); %Basophils 0.3 % (0.0-1.0); %Eosinophils 0.8 % (0.0-10.0); %Lymphocytes 9.3 % (21.0-51.0); %Monocytes 5.9 % (0.0-10.0); %Neutrophils 83.7 % (42.0-75.0); Hemoglobin 12.3 g/dL (12.0-16.0); Mean Corpuscular HGB CONC 31.4 g/dL (32.0-36.0); Mean Corpuscular Hemoglobin 25.9 pg (27.0-31.0); Mean Corpuscular Volume 82.6 fL (78.0-98.0); Mean Platelet Volume 8.2 fL (7.4-10.4); Platelet Count 327 thou/uL (130-400); RBC Distribution Width 14.3 % (11.5-14.5); Red Blood Cell (RBC) Count 4.72 mill/uL (4.20-5.40); White Blood Cell (WBC) Count 15.1 thou/uL (4.8-10.8)
[2021-09-24 17:36] LABS: BHCG - Serum Negative (NEGATIVE); Pregs Control Background? CLEAR/WHITE (CLR/WHITE); Pregs Control Bar Appear? YES (CONTROL BAR)
[2021-09-24 17:42] LABS: ALT (SGPT) 14 U/L (8-55); AST (SGOT) 15 U/L (5-34); Alkaline Phosphatase 76 U/L (40-110); Anion Gap 13 mmol/L (10-20); BUN (Urea Nitrogen) 12 mg/dL (7.0-18.7); Bilirubin, Total 0.4 mg/dL (0.2-1.2); Calc. Creatinine Clearance 0 mL/min (70-130); Calcium 8.2 mg/dL (7.8-10.44); Carbon Dioxide 23 mmol/L (22-29); Chloride 104 mmol/L (98-107); Glucose 95 mg/dL (70-105); Potassium 3.8 mmol/L (3.5-5.1); Sodium 136 mmol/L (136-145)
[2021-09-24] MEDS ORDERED: Acetaminophen 500 MG TAB ONE (19:59)
[2021-09-24] MEDS ORDERED: Ketorolac Tromethamine 30 MG/ML VIAL ONE (19:59)
== END 2021-09-24 21:36 | disposition home or self-care (01) ==
LOC: ERS 16:49
DX: R55 Syncope and collapse (principal); S09.90XA Unspecified injury of head, initial encounter; W18.30XA Fall on same level, unspecified, initial encounter
CPT/HCPCS: 36415; 70450; 71045; 71275; 80053; 84146; 84484; 84703; 85025; 85379; 87804; 93005; 94760; 96374; J1885